=== PATIENT | male | born 1985 | race Caucasian/White ===

== ENCOUNTER 2020-12-30 10:47 | Observation (INO) | payer OTHER ==
[2020-12-30] MEDS ORDERED: SODIUM CHLORIDE 0.9% 1,000 ML IV STA (11:27)
[2020-12-30] MEDS ORDERED: ONDANSETRON 4 MG/2 ML VIAL IVP STA (11:27)
[2020-12-30] MEDS ORDERED: PANTOPRAZOLE 40 MG/10 ML VIAL IVP STA (11:27)
[2020-12-30] MEDS ORDERED: MORPHINE SULFATE 4 MG/ML SYRINGE IV STA (11:27)
--- NOTE | 2020-12-30 12:14 | XR ---
EXAMINATION TYPE: XR chest 2V DATE OF EXAM: 12/30/2020 COMPARISON: NONE HISTORY: Chest pain. TECHNIQUE: Frontal and lateral views of the chest are obtained. FINDINGS: There is no focal air space opacity, pleural effusion, or pneumothorax seen. The cardiac silhouette size is within normal limits. The osseous structures are intact. IMPRESSION: No acute cardiopulmonary process.
--- NOTE | 2020-12-30 12:16 | XR ---
EXAMINATION TYPE: XR KUB DATE OF EXAM: 12/30/2020 12:04 PM CLINICAL HISTORY: Pain and vomiting TECHNIQUE: Two Upright KUB images of the abdomen are obtained. COMPARISON: None. FINDINGS: Air-fluid level in mildly distended stomach. Scattered gas is seen in non-distended small b owel loops. Gas is seen in non-distended colon. There is no visceromegaly, pneumoperitoneum, or abnor mal calcification appreciated. The lung bases are clear and the osseous structures are intact. IMPRESSION: Overall nonobstructive bowel gas pattern.
[2020-12-30 12:54] LABS: Basophils # (A) 0.1 k/uL (0-0.2); Basophils % (A) 1 %; Eosinophils # (A) 3.9 k/uL (0-0.7); Eosinophils % (A) 23 %; HCT 51.4 % (39.0-53.0); HGB 17.1 gm/dL (13.0-17.5); Lymphocytes # (A) 2.9 k/uL (1.0-4.8); Lymphocytes % (A) 17 %; MCH 30.8 pg (25.0-35.0); MCHC 33.3 g/dL (31.0-37.0); MCV 92.5 fL (80.0-100.0); Mean Platelet Volume 7.2; Monocytes # (A) 0.7 k/uL (0-1.0); Monocytes % (A) 4 %; Neutrophils # (A) 9.5 k/uL (1.3-7.7); Neutrophils % (A) 55 %; Platelet Count 393 k/uL (150-450); RBC 5.56 m/uL (4.30-5.90); RDW 14.3 % (11.5-15.5); WBC 17.2 k/uL (3.8-10.6)
--- NOTE | 2020-12-30 13:05 | ED ---
General Adult HPI - General Chief complaint: Nausea/Vomiting/Diarrhea Stated complaint: abd pain, vomiting blood Time Seen by Provider: 12/30/20 11:12 Source: patient, RN notes reviewed Mode of arrival: ambulatory Limitations: no limitations - History of Present Illness Initial comments: Patient is a 35-year-old male that presents to the emergency department complaining of nausea vomiting abdominal pain. Significant other notes that it originally started off as just normal vomiting but is soon as patient Placed into his ER room he vomited in the toilet which had moderate amounts of blood. Patient denied any history of stomach ulcers GI bleeds. Patient didn't appear to be moderately uncomfortable pacing around the room. He notes that he thought it was originally food poisoning and/or something that he ate or drank. Patient denied any significant medical history. Patient denied chest pain shortness of breath headache diarrhea constipation fever fatigue chills. - Related Data Allergies Allergy/AdvReac Type Severity Reaction Status Date / Time citric acid Allergy Unknown Verified 12/30/20 11:10 Childhood orange (food color) Allergy Unknown Verified 12/30/20 11:10 Childhood Review of Systems ROS Statement: Those systems with pertinent positive or pertinent negative responses have been documented in the HPI. ROS Other: All systems not noted in ROS Statement are negative. Past Medical History Past Medical History: No Reported History History of Any Multi-Drug Resistant Organisms: None Reported Additional Past Surgical History / Comment(s): arthroscopy wrist Past Psychological History: No Psychological Hx Reported Smoking Status: Never smoker Past Alcohol Use History: None Reported Past Drug Use History: Marijuana General Exam Limitations: no limitations General appearance: alert, in no apparent distress, obese Head exam: Present: atraumatic, normocephalic, normal inspection Eye exam: Present: normal appearance, PERRL, EOMI. Absent: scleral icterus, conjunctival injection, periorbital swelling ENT exam: Present: normal exam, mucous membranes moist. Absent: normal oropharynx (Erythematous) Neck exam: Present: normal inspection Respiratory exam: Present: normal lung sounds bilaterally. Absent: respiratory distress, wheezes, rales, rhonchi, stridor Cardiovascular Exam: Present: regular rate, normal rhythm, normal heart sounds. Absent: systolic murmur, diastolic murmur, rubs, gallop, clicks GI/Abdominal exam: Present: soft, normal bowel sounds. Absent: distended, tenderness, guarding, rebound, rigid Extremities exam: Present: normal inspection, full ROM, normal capillary refill. Absent: tenderness, pedal edema, joint swelling, calf tenderness Neurological exam: Present: alert, oriented X3 Psychiatric exam: Present: normal affect, normal mood Skin exam: Present: warm, dry, intact, normal color. Absent: rash Course Vital Signs 12/30/20 12/30/20 11:07 14:10 Temperature 98.2 F Pulse Rate 115 H 89 Respiratory 18 18 Rate Blood Pressure 115/77 114/70 O2 Sat by Pulse 96 97 Oximetry EKG Findings - EKG Comments: EKG Findings:: Ventricular rate 95 bpm, W[place] interval 130 ms, QRS duration 88 ms, QTC 397 ms, PRT axes 42/70/-4. Normal sinus rhythm, ST and T wave abnormality consider inferior ischemia, abnormal ECG. Medical Decision Making - Medical Decision Making 35-year-old male complaining of nausea vomiting diarrhea, 1 episode of hematemesis in the ER. Labs, chest x-ray, KUB, EKG, panel monitor, 4 mg morphine, 4 mg Zofran, 40 mg of pantoprazole, occult blood test ordered. Labs: White blood cells 17.2, stool occult positive. Computed tomography scan shows possible Crohn's disease. Case discussed with Dr. Jones, patient will be admitted. Dr. Ochoa was consulted and will except admit with GI on consult. - Lab Data Result diagrams: 12/30/20 12:02 12/30/20 12:02 Lab Results 12/30/20 12/30/20 12/30/20 Range/Units 12:02 12:02 12:02 WBC 17.2 H (3.8-10.6) k/uL RBC 5.56 (4.30-5.90) m/uL Hgb 17.1 (13.0-17.5) gm/dL Hct 51.4 (39.0-53.0) % MCV 92.5 (80.0-100.0) fL MCH 30.8 (25.0-35.0) pg MCHC 33.3 (31.0-37.0) g/dL RDW 14.3 (11.5-15.5) % Plt Count 393 (150-450) k/uL MPV 7.2 Neutrophils % 55 % Lymphocytes % 17 % Monocytes % 4 % Eosinophils % 23 % Basophils % 1 % Neutrophils # 9.5 H (1.3-7.7) k/uL Lymphocytes # 2.9 (1.0-4.8) k/uL Monocytes # 0.7 (0-1.0) k/uL Eosinophils # 3.9 H (0-0.7) k/uL Basophils # 0.1 (0-0.2) k/uL Manual Slide Review Performed Poikilocytosis (manual Present Sodium 137 (137-145) mmol/L Potassium 4.3 (3.5-5.1) mmol/L Chloride 100 (98-107) mmol/L Carbon Dioxide 28 (22-30) mmol/L Anion Gap 9 mmol/L BUN 30 H (9-20) mg/dL Creatinine 1.33 H (0.66-1.25) mg/dL Est GFR (CKD-EPI)AfAm 79 (>60 ml/min/1.73 sqM) Est GFR (CKD-EPI)NonAf 68 (>60 ml/min/1.73 sqM) Glucose 123 H (74-99) mg/dL Plasma Lactic Acid Dwayne 1.9 (0.7-2.0) mmol/L Calcium 9.4 (8.4-10.2) mg/dL Total Bilirubin 0.7 (0.2-1.3) mg/dL AST 20 (17-59) U/L ALT 18 (4-49) U/L Alkaline Phosphatase 67 (38-126) U/L Troponin I (0.000-0.034) ng/mL Total Protein 7.0 (6.3-8.2) g/dL Albumin 4.2 (3.5-5.0) g/dL Amylase 65 (30-110) U/L Lipase 132 (23-300) U/L Stool Occult Blood (Negative) Blood Type Blood Type Recheck Bld Type Recheck Status Antibody Screen Spec Expiration Date 12/30/20 12/30/20 12/30/20 Range/Units 12:02 12:02 12:02 WBC (3.8-10.6) k/uL RBC (4.30-5.90) m/uL Hgb (13.0-17.5) gm/dL Hct (39.0-53.0) % MCV (80.0-100.0) fL MCH (25.0-35.0) pg MCHC (31.0-37.0) g/dL RDW (11.5-15.5) % Plt Count (150-450) k/uL MPV Neutrophils % % Lymphocytes % % Monocytes % % Eosinophils % % Basophils % % Neutrophils # (1.3-7.7) k/uL Lymphocytes # (1.0-4.8) k/uL Monocytes # (0-1.0) k/uL Eosinophils # (0-0.7) k/uL Basophils # (0-0.2) k/uL Manual Slide Review Poikilocytosis (manual Sodium (137-145) mmol/L Potassium (3.5-5.1) mmol/L Chloride (98-107) mmol/L Carbon Dioxide (22-30) mmol/L Anion Gap mmol/L BUN (9-20) mg/dL Creatinine (0.66-1.25) mg/dL Est GFR (CKD-EPI)AfAm (>60 ml/min/1.73 sqM) Est GFR (CKD-EPI)NonAf (>60 ml/min/1.73 sqM) Glucose (74-99) mg/dL Plasma Lactic Acid Dwayne (0.7-2.0) mmol/L Calcium (8.4-10.2) mg/dL Total Bilirubin (0.2-1.3) mg/dL AST (17-59) U/L ALT (4-49) U/L Alkaline Phosphatase (38-126) U/L Troponin I <0.012 (0.000-0.034) ng/mL Total Protein (6.3-8.2) g/dL Albumin (3.5-5.0) g/dL Amylase (30-110) U/L Lipase (23-300) U/L Stool Occult Blood Positive (Negative) Blood Type O Positive Blood Type Recheck No Previous Record Bld Type Recheck Status CABO Indicated Antibody Screen NEGATIVE Spec Expiration Date 01/02/20212301 - EKG Data -: EKG Interpreted by Me EKG shows normal: sinus rhythm Rate: normal EKG Comments: Ventricular rate 95 bpm, WY interval 130 ms, QRS duration 88 ms, QTC 397 ms, PRT axes 42/70/-4. Normal sinus rhythm, ST and T wave abnormality consider inferior ischemia, abnormal ECG. - Radiology Data Radiology results: report reviewed, image reviewed CT angiogram of the abdomen and pelvis: CT findings are consistent with a multifocal enterocolitis as detailed above. Most prominent findings arm prox imal jejunal loops in the upper to mid abdomen. Differential includes infectious and/or inflammatory etiologies. Crohn's disease needs to be strongly considered inpatient at his age. Stomach is distended otherwise unremarkableis dilatation of duodenal sweep. Near the ligament of Treitz there is moderate to severe wall thickening with prominent and dilated jejunum this extent in the right upper to mid abdomen over a continuous moderate length segment. Remainder of small bowel showis dilatatio n. Suboptimal evaluation the right colon due to poor distention. Some mild to moderate wall thickening at this level so resin as there is also some fluid in the right paracolic gutter noted mild wall thickening in the transverse colon is present terminal ileum shows mild to moderate concentric wall thickening without surrounding fat showing. No free air. No well-formed fluid collection or absc ess. KUB: Overall nonobstructive bowel gas pattern Chest x-ray: No acute cardiopulmonary process. Disposition Clinical Impression: Hematemesis, Nausea & vomiting, Abdominal pain Disposition: ADMITTED IP TO THIS HOSP Condition: Stable Is patient prescribed a controlled substance at d/c from ED?: No Referrals: None,Stated [Primary Care Provider] - 1-2 days Time of Disposition: 14:43
[2020-12-30 13:06] LABS: Albumin 4.2 g/dL (3.5-5.0); Calcium 9.4 mg/dL (8.4-10.2); Potassium 4.3 mmol/L (3.5-5.1); Total Bilirubin 0.7 mg/dL (0.2-1.3)
[2020-12-30 13:19] LABS: Poikilocytosis (M) Present
--- NOTE | 2020-12-30 14:10 | CT ---
EXAMINATION TYPE: CT angio abdomen pelvis DATE OF EXAM: 12/30/2020 COMPARISON: None. HISTORY: vomiting blood, GI bleed CT DLP: 3049.6 mGycm, Automated Exposure Control for Dose Reduction was Utilized. CONTRAST: CTA scan of the abdomen and pelvis is performed without oral and without and with IV Contrast, patien t injected with 100 mL of Isovue 370. GI bleed protocol with mid images created on an independent wor kstation and reviewed. FINDINGS: Vascular: Noncontrast images show no suspicious hyperdensity. Post injection images show satisfactory enhancement of the aorta and branch vessels. There is no flash filling collection with delayed incre ase within bowel to suggest active internal GI hemorrhage. LUNG BASES: Slightly elevated right hemidiaphragm. LIVER/GB: Small amount of ascites lying anterior superior aspect. PANCREAS: No significant abnormality is seen. SPLEEN: No significant abnormality is seen. ADRENALS: No significant abnormality is seen. KIDNEYS: Noncontrast images show no renal calculi bilaterally. Postcontrast images show symmetric cor tical medullary uptake and excretion without hydronephrosis seen bilaterally. Incidental exophytic 2. 8 cm thin-walled cyst right kidney upper to midpole level laterally series 601 image 39. BOWEL: Stomach is distended otherwise unremarkable. No suspicious dilatation of duodenal sweep. Near the ligament of Treitz there is moderate to severe wall thickening with prominent and dilated jejunum , this extends into the right upper to midabdomen over a contiguous moderate length segment. Remaind er of small and bowel loops show no suspicious dilatation. Suboptimal evaluation of the right colon d ue to poor distention, some mild to moderate wall thickening at this level is felt present as there i s also some fluid in the right paracolic gutter noted mild wall thickening in the transverse colon is present terminal ileum shows mild to moderate concentric wall thickening without surrounding fat str anding. No free air. No well-formed fluid collection or abscess. PROSTATE/SEMINAL VESICLES: No gross abnormality seen. LYMPH NODES: No greater than 1cm abdominal or pelvic lymph nodes are appreciated. OSSEOUS STRUCTURES: No significant abnormality is seen. OTHER: Fairly moderate amount of free fluid in pelvic cul-de-sac. Large umbilical hernia containing f at and tiny mesenteric vessels. IMPRESSION: CT findings are consistent with a multifocal enterocolitis as detailed above. Most promin ent findings are in proximal jejunal loops in the upper to mid abdomen. Differential includes infecti ous and/or inflammatory etiologies. Crohn's disease needs to BE strongly considered in patient of thi s age.
[2020-12-30] MEDS ORDERED: NALOXONE 0.4 MG/ML 1 ML VIAL IV PRN (14:43)
[2020-12-30] MEDS: SODIUM CHLORIDE 0.9% 1,000 ML IV SCH (15:08)
[2020-12-30 15:20] LABS: Appearance,Urine Clear (Clear); Bilirubin,Urine Negative (Negative); Blood,Urine Negative (Negative); Color,Urine Yellow; Glucose,Urine (UA) Negative (Negative); Ketones,Urine Negative (Negative); Leukocyte Esterase,Urine Negative (Negative); Nitrite,Urine Negative (Negative); Protein,Urine Trace (Negative); Urobilinogen,Urine <2.0 mg/dL (<2.0)
[2020-12-30 15:21] LABS: Specific Gravity,Urine >1.050 (1.001-1.035)
--- NOTE | 2020-12-30 16:24 | ED ---
Medical Decision Making - Medical Decision Making Patient's girlfriend notes that he is taking supplemental hormones not prescribed to himself. Patient girlfriend notes that patient is taking testosterone and a another supplement of which she does not know the name. - Lab Data Result diagrams: 12/30/20 12:02 12/30/20 12:02 Lab Results 12/30/20 12/30/20 12/30/20 Range/Units 12:02 12:02 12:02 WBC 17.2 H (3.8-10.6) k/uL RBC 5.56 (4.30-5.90) m/uL Hgb 17.1 (13.0-17.5) gm/dL Hct 51.4 (39.0-53.0) % MCV 92.5 (80.0-100.0) fL MCH 30.8 (25.0-35.0) pg MCHC 33.3 (31.0-37.0) g/dL RDW 14.3 (11.5-15.5) % Plt Count 393 (150-450) k/uL MPV 7.2 Neutrophils % 55 % Lymphocytes % 17 % Monocytes % 4 % Eosinophils % 23 % Basophils % 1 % Neutrophils # 9.5 H (1.3-7.7) k/uL Lymphocytes # 2.9 (1.0-4.8) k/uL Monocytes # 0.7 (0-1.0) k/uL Eosinophils # 3.9 H (0-0.7) k/uL Basophils # 0.1 (0-0.2) k/uL Manual Slide Review Performed Poikilocytosis (manual Present Sodium 137 (137-145) mmol/L Potassium 4.3 (3.5-5.1) mmol/L Chloride 100 (98-107) mmol/L Carbon Dioxide 28 (22-30) mmol/L Anion Gap 9 mmol/L BUN 30 H (9-20) mg/dL Creatinine 1.33 H (0.66-1.25) mg/dL Est GFR (CKD-EPI)AfAm 79 (>60 ml/min/1.73 sqM) Est GFR (CKD-EPI)NonAf 68 (>60 ml/min/1.73 sqM) Glucose 123 H (74-99) mg/dL Plasma Lactic Acid Dwayne (0.7-2.0) mmol/L Calcium 9.4 (8.4-10.2) mg/dL Total Bilirubin 0.7 (0.2-1.3) mg/dL AST 20 (17-59) U/L ALT 18 (4-49) U/L Alkaline Phosphatase 67 (38-126) U/L Troponin I (0.000-0.034) ng/mL Total Protein 7.0 (6.3-8.2) g/dL Albumin 4.2 (3.5-5.0) g/dL Amylase 65 (30-110) U/L Lipase 132 (23-300) U/L Urine Color Yellow Urine Appearance Clear (Clear) Urine pH 7.0 (5.0-8.0) Ur Specific [place] >1.050 H (1.001-1.035) Urine Protein Trace H (Negative) Urine Glucose (UA) Negative (Negative) Urine Ketones Negative (Negative) Urine Blood Negative (Negative) Urine Nitrite Negative (Negative) Urine Bilirubin Negative (Negative) Urine Urobilinogen <2.0 (<2.0) mg/dL Ur Leukocyte Esterase Negative (Negative) Stool Occult Blood (Negative) Blood Type Blood Type Confirm Blood Type Recheck Bld Type Recheck Status Antibody Screen Spec Expiration Date 12/30/20 12/30/20 12/30/20 Range/Units 12:02 12:02 12:02 WBC (3.8-10.6) k/uL RBC (4.30-5.90) m/uL Hgb (13.0-17.5) gm/dL Hct (39.0-53.0) % MCV (80.0-100.0) fL MCH (25.0-35.0) pg MCHC (31.0-37.0) g/dL RDW (11.5-15.5) % Plt Count (150-450) k/uL MPV Neutrophils % % Lymphocytes % % Monocytes % % Eosinophils % % Basophils % % Neutrophils # (1.3-7.7) k/uL Lymphocytes # (1.0-4.8) k/uL Monocytes # (0-1.0) k/uL Eosinophils # (0-0.7) k/uL Basophils # (0-0.2) k/uL Manual Slide Review Poikilocytosis (manual Sodium (137-145) mmol/L Potassium (3.5-5.1) mmol/L Chloride (98-107) mmol/L Carbon Dioxide (22-30) mmol/L Anion Gap mmol/L BUN (9-20) mg/dL Creatinine (0.66-1.25) mg/dL Est GFR (CKD-EPI)AfAm (>60 ml/min/1.73 sqM) Est GFR (CKD-EPI)NonAf (>60 ml/min/1.73 sqM) Glucose (74-99) mg/dL Plasma Lactic Acid Dwayne 1.9 (0.7-2.0) mmol/L Calcium (8.4-10.2) mg/dL Total Bilirubin (0.2-1.3) mg/dL AST (17-59) U/L ALT (4-49) U/L Alkaline Phosphatase (38-126) U/L Troponin I <0.012 (0.000-0.034) ng/mL Total Protein (6.3-8.2) g/dL Albumin (3.5-5.0) g/dL Amylase (30-110) U/L Lipase (23-300) U/L Urine Color Urine Appearance (Clear) Urine pH (5.0-8.0) Ur Specific [place] (1.001-1.035) Urine Protein (Negative) Urine Glucose (UA) (Negative) Urine Ketones (Negative) Urine Blood (Negative) Urine Nitrite (Negative) Urine Bilirubin (Negative) Urine Urobilinogen (<2.0) mg/dL Ur Leukocyte Esterase (Negative) Stool Occult Blood (Negative) Blood Type O Positive Blood Type Confirm Blood Type Recheck No Previous Record Bld Type Recheck Status CABO Indicated Antibody Screen NEGATIVE Spec Expiration Date 01/02/2021230112/30/20 12/30/20 Range/Units 12:02 12:33 WBC (3.8-10.6) k/uL RBC (4.30-5.90) m/uL Hgb (13.0-17.5) gm/dL Hct (39.0-53.0) % MCV (80.0-100.0) fL MCH (25.0-35.0) pg MCHC (31.0-37.0) g/dL RDW (11.5-15.5) % Plt Count (150-450) k/uL MPV Neutrophils % % Lymphocytes % % Monocytes % % Eosinophils % % Basophils % % Neutrophils # (1.3-7.7) k/uL Lymphocytes # (1.0-4.8) k/uL Monocytes # (0-1.0) k/uL Eosinophils # (0-0.7) k/uL Basophils # (0-0.2) k/uL Manual Slide Review Poikilocytosis (manual Sodium (137-145) mmol/L Potassium (3.5-5.1) mmol/L Chloride (98-107) mmol/L Carbon Dioxide (22-30) mmol/L Anion Gap mmol/L BUN (9-20) mg/dL Creatinine (0.66-1.25) mg/dL Est GFR (CKD-EPI)AfAm (>60 ml/min/1.73 sqM) Est GFR (CKD-EPI)NonAf (>60 ml/min/1.73 sqM) Glucose (74-99) mg/dL Plasma Lactic Acid Dwayne (0.7-2.0) mmol/L Calcium (8.4-10.2) mg/dL Total Bilirubin (0.2-1.3) mg/dL AST (17-59) U/L ALT (4-49) U/L Alkaline Phosphatase (38-126) U/L Troponin I (0.000-0.034) ng/mL Total Protein (6.3-8.2) g/dL Albumin (3.5-5.0) g/dL Amylase (30-110) U/L Lipase (23-300) U/L Urine Color Urine Appearance (Clear) Urine pH (5.0-8.0) Ur Specific [place] (1.001-1.035) Urine Protein (Negative) Urine Glucose (UA) (Negative) Urine Ketones (Negative) Urine Blood (Negative) Urine Nitrite (Negative) Urine Bilirubin (Negative) Urine Urobilinogen (<2.0) mg/dL Ur Leukocyte Esterase (Negative) Stool Occult Blood Positive (Negative) Blood Type Blood Type Confirm O Positive Blood Type Recheck Bld Type Recheck Status Antibody Screen Spec Expiration Date Disposition Clinical Impression: Hematemesis, Nausea & vomiting, Abdominal pain Disposition: ADMITTED IP TO THIS [facility] Condition: Stable
--- NOTE | 2020-12-30 16:50 | P.HPIM ---
History of Present Illness 35-year-old male came in with comments of mainly nausea vomiting after eating changes food yesterday afternoon. As patient was retching patient started throwing up blood. She believed that this may be food poisoning. Patient denie d any fever chills, patient does have leukocytosis patient has elevated serum creatinine. CT of the abdomen showed multiple areas of proximal jejunal colitis multifocal enterocolitis. Concern for Crohn's disease. REVIEW OF SYSTEMS: CONSTITUTIONAL: No fever, no malaise, no fatigue. HEENT: No recent visual problems or hearing problems. Denied any sore throat. CARDIOVASCULAR: No chest pain, orthopnea, PND, no palpitations, no syncope. PULMONARY: No shortness of breath, no cough, no hemoptysis. GASTROINTESTINAL: As mentioned in HPI. NEUROLOGICAL: No headaches, no weakness, no numbness. HEMATOLOGICAL: Denies any bleeding or petechiae. GENITOURINARY: Denies any burning micturition, frequency, or urgency. MUSCULOSKELETAL/RHEUMATOLOGICAL: Denies any joint pain, swelling, or any muscle pain. ENDOCRINE: Denies any polyuria or polydipsia. The rest of the 14-point review of systems is negative. PHYSICAL EXAMINATION: GENERAL: The patient is alert and oriented x3, not in any acute distress. Well developed, well nourished. HEENT: Pupils are round and equally reacting to light. EOMI. No scleral icterus. No conjunctival pallor. Normocephalic, atraumatic. No pharyngeal erythema. No thyromegaly. CARDIOVASCULAR: S1 and S2 present. No murmurs, rubs, or gallops. PULMONARY: Chest is clear to auscultation, no wheezing or crackles. ABDOMEN: Soft, nontender, nondistended, normoactive bowel sounds. No palpable organomegaly. MUSCULOSKELETAL: No joint swelling or deformity. EXTREMITIES: No cyanosis, clubbing, or pedal edema. NEUROLOGICAL: Gross neurological examination did not reveal any focal deficits. SKIN: No rashes. Assessment and plan -Abdominal pain: Gastroenteritis supportive care with IV fluids counseling gastroenterology and CT is read as concerning for Crohn's disease possibly of which is low patient probably has gastroenteritis - upper GI bleed: Secondary to possible [place] tear -Acute renal failure. Baseline creatinine is not available. Patient will be continued on IV fluids probably prerenal azotemia -Leukocytosis reactive probably due to assessment 1 DVT prophylaxis: Early ambulation Past Medical History Past Medical History: No Reported History History of Any Multi-Drug Resistant Organisms: None Reported Additional Past Surgical History / Comment(s): arthroscopy wrist Past Psychological History: No Psychological Hx Reported Smoking Status: Never smoker Past Alcohol Use History: None Reported Past Drug Use History: Marijuana Medications and Allergies Home Medications Medication Instructions Recorded Confirmed Type No Known Home Medications 12/30/20 12/30/20 History Allergies Allergy/AdvReac Type Severity Reaction Status Date / Time citric acid Allergy Unknown Verified 12/30/20 14:47 Childhood orange (food color) Allergy Unknown Verified 12/30/20 14:47 Childhood Physical Exam Vitals: Vital Signs Temp Pulse Resp BP Pulse Ox 12/30/20 14:10 89 18 114/70 97 12/30/20 11:07 98.2 F 115 H 18 115/77 96 Intake and Output 12/30/20 12/30/20 12/30/20 06:59 14:59 22:59 Other: Weight 103.419 kg Results CBC & Chem 7: 12/30/20 12:02 12/30/20 12:02 Labs: Abnormal Lab Results - Last 24 Hours (Table) 12/30/20 12/30/20 12/30/20 Range/Units 12:02 12:02 12:02 WBC 17.2 H (3.8-10.6) k/uL Neutrophils # 9.5 H (1.3-7.7) k/uL Eosinophils # 3.9 H (0-0.7) k/uL BUN 30 H (9-20) mg/dL Creatinine 1.33 H (0.66-1.25) mg/dL Glucose 123 H (74-99) mg/dL Ur Specific [place] >1.050 H (1.001-1.035) Urine Protein Trace H (Negative)
[2020-12-30] MEDS: PANTOPRAZOLE 40 MG/10 ML VIAL IVP SCH (20:48)
[2020-12-30] MEDS: ONDANSETRON 4 MG/2 ML VIAL IVP PRN (20:49)
[2020-12-31] MEDS: SODIUM CHLORIDE 0.9% 1,000 ML IV SCH ×4 (08:39→21:33)
[2020-12-31] MEDS: PANTOPRAZOLE 40 MG/10 ML VIAL IVP SCH ×2 (08:41→21:29)
[2020-12-31] MEDS ORDERED: PANTOPRAZOLE 40 MG/10 ML VIAL IV SCH (09:00)
[2020-12-31 09:46] LABS: HCT 44.8 % (39.0-53.0); HGB 14.5 gm/dL (13.0-17.5); MCH 30.3 pg (25.0-35.0); MCHC 32.3 g/dL (31.0-37.0); MCV 93.7 fL (80.0-100.0); Mean Platelet Volume 7.1; Platelet Count 306 k/uL (150-450); RBC 4.78 m/uL (4.30-5.90); RDW 14.4 % (11.5-15.5); WBC 13.7 k/uL (3.8-10.6)
[2020-12-31 09:59] LABS: INR 1.1 (<1.2); Prothrombin Time 11.6 sec (9.0-12.0)
[2020-12-31] MEDS: MORPHINE SULFATE 4 MG/ML SYRINGE IV PRN ×3 (10:36→19:39)
[2020-12-31] MEDS: ONDANSETRON 4 MG/2 ML VIAL IVP PRN (10:43)
--- NOTE | 2020-12-31 11:57 | P.CONS ---
History of Present Illness - Reason for Consult Consult date: 12/31/20 GI bleed Requesting physician: Estephanie Ochoa - Chief Complaint nausea, vomiting, and abdominal pain - History of Present Illness This is a 35-year-old white male who presented to the emergency department yesterday with complaints of abdominal pain associated with nausea and vomiting, diarrhea which started on Thursday. States he had multiple episodes of vomiting that began Thursday afternoon which he thought he had food poisoning. At that time he denied any coffee-ground emesis or hematemesis, but later that afternoon he started having dark vomit. He states yesterday he had 2 loose bowel movements. When he came to the emergency department he vomited bright red blood. States his bowel movement was black. He has had no IV further vomiting since he had IV antibiotics. He denies any history of peptic ulcer disease or acid reflux. He does take a low dosed daily aspirin, denies any other NSAID use. Takes multiple supplements including creatine, protein powder and testosterone for the last 3 months duration. He states he does have a history of heavy alcohol use in his 20s and drink daily. However he states now he only drinks maybe once a month. He's had no previous history of EGD or colonoscopy.he had a CTA of the abdomen and pelvis with an impression that states CT findings are consistent with a multifocal enterocolitis as detailed above most prominent findings are and proximal jejunal loops in the upper to mid abdomen. Differential includes infectious and/or inflammatory etiologies. Crohn's disease needs to be strongly considered in patient of this age.on admission he had a WBC of 17.2, hemoglobin 17, hematocrit 51, platelet count 393,000 BUN 30, creatinine 1.33,total bilirubin 0.7 AST 20 ALT 18 alk phos 67. Repeat WBC 13.7 hemoglobin 14.5 hematocrit 44.8 platelet count 306,000, INR 1.1. Had a positive stool for occult blood. Review of Systems REVIEW OF SYSTEMS: CARDIOPULMONARY: No chest pain or shortness of breath. Gastrointestinal: Burning sensation in epigastric region, lower abdominal cramping. Nausea and vomiting withb right red blood. Melena. GENITOURINARY: No dysuria or hematuria. MUSCULOSKELETAL: Reports normal range of motion., Joint pain. SKIN: No rashes. No jaundice. ENDOCRINE: No chills, fevers. No excessive weight gain or loss. No polydipsia or polyuria. PSYCHIATRIC: Unremarkable. NEUROLOGY: No change in mental status. Denies dizziness, headache. ENT: Vision unremarkable. CONSTITUTIONAL: No recent weight loss. No fever, chills, night sweats. Past Medical History Past Medical History: No Reported History History of Any Multi-Drug Resistant Organisms: None Reported Additional Past Surgical History / Comment(s): arthroscopy wrist Past Psychological History: No Psychological Hx Reported Smoking Status: Former smoker Past Alcohol Use History: None Reported Additional Past Alcohol Use History / Comment(s): Patient quit smoking 12 years ago Past Drug Use History: Marijuana - Past Family History Mother Family Medical History: Cancer Medications and Allergies Home Medications Medication Instructions Recorded Confirmed Type No Known Home Medications 12/30/20 12/30/20 History Allergies Allergy/AdvReac Type Severity Reaction Status Date / Time orange (food color) Allergy Unknown Verified 12/30/20 14:47 Childhood Physical Exam Vitals: Vital Signs Temp Pulse Pulse Resp BP BP Pulse Ox 12/31/20 07:01 98.6 F 72 18 122/72 97 12/31/20 02:24 99.1 F 100 16 113/71 97 12/30/20 20:00 98.3 F 84 18 110/69 97 12/30/20 18:13 98.1 F 96 20 111/70 96 12/30/20 17:56 97 18 113/70 98 12/30/20 14:10 89 18 114/70 97 12/30/20 11:07 98.2 F 115 H 18 115/77 96 Intake and Output 12/30/20 12/31/20 12/31/20 22:59 06:59 14:59 Other: Voiding Method Toilet # Voids 2 # Bowel Movements 1 Weight 103.419 kg General appearance: The patient is alert, oriented, appears in no acute distress. HET: Head is normocephalic and atraumatic. Conjunctiva pink. Sclera anicteric. Neck: Supple without lymphadenopathy. Trachea midline. Heart: S1 S2. Regular rate and rhythm. Lungs: Clear to auscultation. Abdomen: Soft, right lower quadrant tenderness, nondistended with bowel sounds. No guarding or rigidity. Skin: No rashes. No jaundice. Extremities: Normal skin color and turgor. No pedal edema. Neurological: No focal deficits. Alert and oriented 3.. Results CBC & Chem 7: 12/31/20 08:51 12/30/20 12:02 Labs: Abnormal Lab Results - Last 24 Hours (Table) 12/30/20 12/30/20 12/30/20 Range/Units 12:02 12:02 12:02 WBC 17.2 H (3.8-10.6) k/uL Neutrophils # 9.5 H (1.3-7.7) k/uL Eosinophils # 3.9 H (0-0.7) k/uL BUN 30 H (9-20) mg/dL Creatinine 1.33 H (0.66-1.25) mg/dL Glucose 123 H (74-99) mg/dL Ur Specific [place] >1.050 H (1.001-1.035) Urine Protein Trace H (Negative) Comments: CT angiogram abdomen and pelvis: stomach is distended otherwise unremarkable. No suspicious dilation of duodenal sweep. Near the ligament of Treitz there is moderate to severe wall thickening with prominent and dilated jejunum, this extends into the right upper to mid abdomen over a contingency moderate length segment. Remainder of small and bowel loops show no suspicious dilation. S uboptimal evaluation of the right colon due to poor distention, some mild to moderate wall thickening at this level is felt present as there is also some fluid in the right paracolic gutter noted, mild wall thickening in the transverse colon is present, terminal ileum shows mild to moderate concentric wall thickening without surrounding fat stranding. No free air. No well-formed fluid collection or abscess. Assessment and Plan (1) GI bleed Narrative/Plan: 35-year-old male who presented to the emergency department with complaints of nausea vomiting, abdominal pain and diarrhea since Thursday. Patient states he had multiple episodes on Thursday and presented to the emergency department yesterday has pain increased and he started having vomiting blood. Once he was here at the emergency department he apparently started vomiting significant amount of bright red blood. He also states he had 2 loose bowel movements yesterday, second one which he noted was black. He has no previous history of peptic ulcer disease, GERD, GI bleed, NSAID use other than low-dose daily aspirin. He denies previous EGD or colonoscopy. No history of Crohn's, colitis, or colon cancer. No further diarrhea, nausea or vomiting since he had IV started and given antiemetics. He does have a previous history and his 20s of heavy drinking and states at that time he did have a period where he did vomit blood after retching, however never sought medical treatment. He also has started new supplements including creatine, protein powder and testosterone. He had a CT angiogram of the abdomen and pelvis that showed findings consistent with a multifocal enterocolitis most prominent findings are in the proximal jejunal loops in the upper to mid abdomen. Patient did have evidence of leukocytosis on admission with a stable hemoglobin of 17.1. Current Visit: Yes Status: Acute Code(s): K92.2 - GASTROINTESTINAL HEMORRHAGE, UNSPECIFIED SNOMED Code(s): 65588171 (2) Abdominal pain Current Visit: Yes Status: Acute Code(s): R10.9 - UNSPECIFIED ABDOMINAL PAIN SNOMED Code(s): 19131953 (3) Hematemesis Current Visit: Yes Status: Acute Code(s): K92.0 - HEMATEMESIS SNOMED Code(s): 4975603 (4) Nausea & vomiting Current Visit: Yes Status: Acute Code(s): R11.2 - NAUSEA WITH VOMITING, UNSPECIFIED SNOMED Code(s): 31282815 Plan: 1. Continue symptomatic and supportive care 2. Continue Protonix 40 mg twice a day 3. Clear liquid diet 4. Nothing by mouth after midnight 5. Will proceed with EGD tomorrow 6. PT/INR ordered 7. Avoid NSAIDs 8. Continue antiemetics as needed 9. Repeat CBC Dr. Kris Garcia I agree with the dictator's note, documented as a scribe by Marleen Amador.
[2020-12-31 13:08] LABS: Eosinophils # (M) 3.56 k/uL (0-0.7); Lymphocytes # (M) 2.74 k/uL (1.0-4.8); Monocytes # (M) 0.27 k/uL (0-1.0); Neutrophils # (M) 7.12 k/uL (1.3-7.7); Neutrophils % (M) 52 %; Nucleated Red Blood Cells 0 /100 WBC (0-0); Total Cells Counted 100
--- NOTE | 2020-12-31 15:48 | P.PN ---
Subjective Progress Note Date: 12/31/20 35-year-old male came in with comments of mainly nausea vomiting after eating changes food yesterday afternoon. As patient was retching patient started throwing up blood. She believed that this may be food poisoning. Patient denied any fever chills, patient does have leukocytosis patient has elevated se rum creatinine. CT of the abdomen showed multiple areas of proximal jejunal colitis multifocal enterocolitis. Concern for Crohn's disease. 12/31/20 Patient is evaluated today resting in bed. He states that he is still having bloody bowel movements, blast was very dark in color but did have some red blood. He was evaluated by GI who is doing of upper endoscopy tomorrow. He'll be nothing by mouth after midnight. The labs include a white blood cell count 13.7, hemoglobin of 14.5 which is still normal but however there is A 3 g drop. We will repeat a CBC at 3 PM and in the morning. BUN is 30, creatinine 1.33. We will repeat in the morning. Patient is on IV fluids at 130 mL per hour. Troponin was negative, UA was negative. His occult was positive. Adalat was added to rule out ulcerative colitis as a suspicious diagnosis, that is still pending. Patient is receiving IV Protonix for GI prophylaxis and pain management for morphine. Vital signs include temperature 98.3, heart rate 75, blood pressure 109/65 and 97% room air. ROS Constitutional: Denied any fatigue denied any fever. Cardio vascular: denied any chest pain, palpitations Gastrointestinal denied any nausea vomiting, reports loose stools with blood. Pulmonary: Denied any shortness of breath cough Neurologic denied any new focal deficits All inpatient medications were reviewed and appropriate changes in these m edications as dictated in the interval history and assessment and plan. PHYSICAL EXAMINATION: GENERAL: The patient is alert and oriented x3, not in any acute distress. Well developed, well nourished. HEENT: Pupils are round and equally reacting to light. EOMI. No scleral icterus. No conjunctival pallor. Normocephalic, atraumatic. No pharyngeal erythema. No thyromegaly. CARDIOVASCULAR: S1 and S2 present. No murmurs, rubs, or gallops. PULMONARY: Chest is clear to auscultation, no wheezing or crackles. ABDOMEN: Soft, nontender, nondistended, normoactive bowel sounds. No palpable organomegaly. MUSCULOSKELETAL: No joint swelling or deformity. EXTREMITIES: No cyanosis, clubbing, or pedal edema. NEUROLOGICAL: Gross neurological examination did not reveal any focal deficits. SKIN: No rashes. Assessment and plan -Abdominal pain: Gastroenteritis supportive care with IV fluids counseling gastroenterology and CT is read as concerning for Crohn's disease possibly of which is low patient probably has gastroenteritis - upper GI bleed: Secondary to possible Yue-Mckee tear -Acute renal failure. Baseline creatinine is not available. Patient will be continued on IV fluids probably prerenal azotemia -Leukocytosis reactive probably due to assessment 1, improving DVT prophylaxis: Early ambulation GI prophylaxis: IV Protonix Plan is for upper endoscopy tomorrow GI services. We will monitor hemoglobin closely and continue with IV fluids. Repeat labs in the morning. Objective - Vital Signs Vital signs: Vital Signs Temp 98.3 F 12/31/20 13:40 Pulse 75 12/31/20 13:40 Resp 18 12/31/20 13:40 BP 109/65 12/31/20 13:40 Pulse Ox 97 12/31/20 13:40 Intake & Output 12/30/20 12/31/20 12/31/20 18:59 06:59 18:59 Weight 103.419 kg Other: Voiding Method Toilet # Voids 2 # Bowel Movements 1 1 - Labs CBC & Chem 7: 12/31/20 08:51 12/30/20 12:02 Labs: Abnormal Lab Results - Last 24 Hours (Table) 12/31/20 Range/Units 08:51 WBC 13.7 H (3.8-10.6) k/uL Eosinophils # (Manual) 3.56 H (0-0.7) k/uL Assessment and Plan Time with Patient: Greater than 30
[2020-12-31 16:06] LABS: HCT 38.9 % (39.0-53.0); HGB 13.6 gm/dL (13.0-17.5); MCV 91.4 fL (80.0-100.0); Mean Platelet Volume 6.8; Platelet Count 304 k/uL (150-450); RBC 4.26 m/uL (4.30-5.90); RDW 14.7 % (11.5-15.5); WBC 11.6 k/uL (3.8-10.6)
[2020-12-31 16:53] LABS: Eosinophils # (M) 3.83 k/uL (0-0.7); Lymphocytes # (M) 2.67 k/uL (1.0-4.8); Monocytes # (M) 0.35 k/uL (0-1.0); Neutrophils # (M) 4.76 k/uL (1.3-7.7); Neutrophils % (M) 41 %; Nucleated Red Blood Cells 0 /100 WBC (0-0); Total Cells Counted 100
[2020-12-31] MEDS ORDERED: LACTATED RINGERS 1,000 ML IV SCH (18:30)
[2021-01-01 07:45] LABS: African American GFR (CKD) >90 (>60 ml/min/1.73 sqM); Anion Gap 6 mmol/L; Blood Urea Nitrogen 9 mg/dL (9-20); Calcium 8.4 mg/dL (8.4-10.2); Carbon Dioxide 24 mmol/L (22-30); Chloride 106 mmol/L (98-107); Glucose 96 mg/dL (74-99); Non-African American GFR(CKD) >90 (>60 ml/min/1.73 sqM); Potassium 4.5 mmol/L (3.5-5.1); Sodium 136 mmol/L (137-145)
[2021-01-01] MEDS: SODIUM CHLORIDE 0.9% 1,000 ML IV SCH ×2 (08:00→13:59)
[2021-01-01] MEDS: PANTOPRAZOLE 40 MG/10 ML VIAL IVP SCH (09:12)
[2021-01-01 11:52] LABS: Basophils # (A) 0.07 X 10*3/uL (0.00-0.10); Basophils % (A) 0.7 %; Eosinophils # (A) 4.21 X 10*3/uL (0.04-0.35); Eosinophils % (A) 39.6 %; HCT 38.1 % (39.6-50.0); HGB 12.2 g/dL (13.0-17.0); Lymphocytes # (A) 2.11 X 10*3/uL (0.90-5.00); Lymphocytes % (A) 19.8 %; MCH 29.3 pg (27.0-32.0); MCV 91.6 fL (80.0-97.0); Mean Platelet Volume 9.9 fL (9.5-12.2); Monocytes # (A) 0.56 X 10*3/uL (0.20-1.00); Monocytes % (A) 5.3 %; Neutrophils # (A) 3.67 X 10*3/uL (1.80-7.70); Neutrophils % (A) 34.4 %; Platelet Count 286 X 10*3/uL (140-440); RBC 4.16 X 10*6/uL (4.40-5.60); RDW 15.1 % (11.5-14.5); WBC 10.64 X 10*3/uL (4.50-10.00)
[2021-01-01] MEDS ORDERED: PROPOFOL 10 MG/ML 20 ML VIAL IV ONE (12:35)
[2021-01-01] MEDS ORDERED: LIDOCAINE 1% INJ 10MG/ML (20 ML MDV) ONE (12:35)
[2021-01-01] MEDS ORDERED: SODIUM CHLORIDE 0.9% 500 ML 500 ML IV ONE (12:49)
--- NOTE | 2021-01-01 13:18 | P.PCN ---
Date of Procedure: 01/01/21 Procedure(s) Performed: BRIEF HISTORY: Patient is a 35-year-old, pleasant, male admitted hospital with nausea vomiting and coffee-ground emesis followed by hematemesis.. Hemoglobin remains stable.. He scheduled for an upper endoscopy to evaluate further PROCEDURE PERFORMED: Esophagogastroduodenoscopy with biopsy. PREOPERATIVE DIAGNOSIS: Acute upper GI bleed. IV sedation per anesthesia. PROCEDURE: After informed consent was obtained, the patient was brought into the endoscopy unit. IV sedation was administered by Anesthesia under continuous monitoring. Initially the Olympus GIF-140 video endoscope was inserted into the mouth. Esophagus intubated without any difficulty. It was gradually advanced into the stomach and duodenum and carefully examined. The bulb and the second part of the duodenum appeared normal. The scope at this time was withdrawn to the stomach, adequately insufflated with air, and upon careful examination, mucosa of the antrum had scattered erosions and biopsies were done from this area. The, body, cardia and the fundus appeared normal. The scope was then withdrawn into the esophagus. The GE junction was located at 39 cm from the incisors. Small sliding type hiatal hernia noted. The esophagus appeared normal. There were no erosions or ulcerations seen and the patient tolerated the procedure well. IMPRESSION: 1. Small hiatal hernia. 2. Antral erosive gastritis. RECOMMENDATIONS: The findings of this examination were discussed with the patient as well as his family. It is likely he had a small bowel a Yue- Mckee tear at the costal bleeding which spontaneously resolved. He was advised to follow with the biopsy results. Diet will be advanced as tolerated. He can be discharged home today..
[2021-01-01 14:06] VITALS: BP 105/64; PULSE 83; RESP 16; TEMP 98.2
--- NOTE | 2021-01-02 12:52 | P.DS ---
Providers Date of admission: 12/30/20 14:57 Expected date of discharge: 01/01/21 Attending physician: Estephanie Ochoa MD Consults: 12/30/20 14:43 Consult Physician Urgent Consulting Provider: Vanesa Garcia Consult Reason/Comments: GI bleed Do you want consulting provider notified?: Yes Primary care physician: Stated None Hospital Course: Final diagnosis -Abdominal pain: Gastroenteritis with concern for Crohn's disease although suspicion is extremely low patient probably has gastroenteritis -upper GI bleed: Secondary to possible Yue-Mckee tear -Status post EGD showing antral erosive gastritis and small hiatal hernia biopsy obtained -Acute renal failure. Most likely prerenal azotemia, improved -Leukocytosis reactive probably due to assessment 1, improved -DVT prophylaxis -GI prophylaxis -Full code Discharge disposition Patient is being discharged in a stable condition with guarded prognosis to home. Patient will follow-up with Dr. Pryor upon discharge. Patient will also follow-up with GI Dr. Garcia for biopsy results. Patient will continue on Protonix until follow-up with GI.. Total time taken is greater than 35 minutes. Hospital course 35-year-old male came in with comments of mainly nausea vomiting after eating changes food yesterday afternoon. As patient was retching patient started throwing up blood. She believed that this may be food poisoning. Patient denied any fever chills, patient does have leukocytosis patient has elevated serum creatinine. CT of the abdomen showed multiple areas of proximal jejunal colitis multifocal enterocolitis. Concern for Crohn's disease. 12/31/20 Patient is evaluated today resting in bed. He states that he is still having bloody bowel movements, blast was very dark in color but did have some red blood. He was evaluated by GI who is doing of upper endoscopy tomorrow. He'll be nothing by mouth after midnight. The labs include a white blood cell count 13.7, hemoglobin of 14.5 which is still normal but however there is A 3 g drop. We will repeat a CBC at 3 PM and in the morning. BUN is 30, creatinine 1.33. We will repeat in the morning. Patient is on IV fluids at 130 mL per hour. Tro ponin was negative, UA was negative. His occult was positive. Adalat was added to rule out ulcerative colitis as a suspicious diagnosis, that is still pending. Patient is receiving IV Protonix for GI prophylaxis and pain management for morphine. Vital signs include temperature 98.3, heart rate 75, blood pressure 109/65 and 97% room air. 01/01/2021 Patient is seen and evaluated in follow-up with no further reports of vomiting or bloody stools noted. Patient underwent EGD with GI which shows small hiatal hernia and antral erosive gastritis with possible likelihood of small bowel Yue-Mckee tear at the costal bleeding which spontaneously be resolved. Biopsy was obtained and patient will need follow-up with GI in the outpatient setting in 1-2 weeks to discuss results. Hemoglobin is stable at 12.2. Diet was advanced and patient tolerated diet and requesting to go home. Currently no reports of chest pain, worsening shortness of breath, or palpitations. Patient is afebrile. No reports of nausea or vomiting and patient is tolerating diet. GENERAL: The patient is alert and oriented x3, not in any acute distress. Well developed, well nourished. HEENT: Pupils are round and equally reacting to light. EOMI. No scleral icterus. No conjunctival pallor. Normocephalic, atraumatic. No pharyngeal erythema. No thyromegaly. CARDIOVASCULAR: S1 and S2 present. No murmurs, rubs, or gallops. PULMONARY: Chest is clear to auscultation, no wheezing or crackles. ABDOMEN: Soft, nontender, nondistended, normoactive bowel sounds. No palpable organomegaly. MUSCULOSKELETAL: No joint swelling or deformity. EXTREMITIES: No cyanosis, clubbing, or pedal edema. NEUROLOGICAL: Gross neurological examination did not reveal any focal deficits. SKIN: No rashes. Please refer to medication reconciliation sheet for a list of medications. Patient Condition at Discharge: Stable Plan - Discharge Summary Discharge Rx Participant: No New Discharge Prescriptions: New Pantoprazole [Protonix] 40 mg PO DAILY 30 Days #30 tab Discharge Medication List Pantoprazole [Protonix] 40 mg PO DAILY 30 Days #30 tab 01/01/21 [Rx] Follow up Appointment(s)/Referral(s): Vanesa Garcia MD [STAFF PHYSICIAN] - 1 Week Eladia Pryor MD [REFERRING] - 1-2 Days Patient Instructions/Handouts: Gastrointestinal Bleeding (DC) Activity/Diet/Wound Care/Special Instructions: Activity Limited until follow-up Follow-up with primary care provider and establish upon discharge Follow-up with GI for test results in 1-2 weeks Continue with Protonix until GI follow-up Continue regular diet Discharge Disposition: HOME SELF-CARE
[2021-01-04 14:32] LABS: Saccharomyces cerevisiae IgA 7.9 UNITS (<=20)
== END 2021-01-01 14:29 | disposition home or self-care (01) ==
LOC: EC 10:47 → INTOOBSV 14:57 → 4SSUR 14:57 → UNDODISIN 01-01 14:29
PROVIDERS: ADMIT Internal Medicine; ATTEND Internal Medicine
DX: R10.30 Lower abdominal pain, unspecified (principal); R19.7 Diarrhea, unspecified; K29.51 Unspecified chronic gastritis with bleeding; K44.9 Diaphragmatic hernia without obstruction or gangrene; N17.9 Acute kidney failure, unspecified; D72.829 Elevated white blood cell count, unspecified; K92.0 Hematemesis; R19.5 Other fecal abnormalities; Z20.822 Contact with and (suspected) exposure to COVID-19; Z87.891 Personal history of nicotine dependence; E66.9 Obesity, unspecified; Z68.33 Body mass index [BMI] 33.0-33.9, adult; Z91.018 Allergy to other foods; Z79.82 Long term (current) use of aspirin; Z79.890 Hormone replacement therapy
CPT/HCPCS: 96376; 96361; 96374; 96375; 99285; 36415; 93005; 86900; 86901; 86671 ×2; 88305; 80053; 80048; 82150; 83605; 83690; 84484; 85025 ×3; 85610; 86850; 82272; 81003; 87635; 71046; 74018; 74174; 43239; G0378 ×3; J2270 ×2; J2405 ×2; J2001; J2704; C9113 ×3; Q9967

== ENCOUNTER 2021-01-04 02:52 | Inpatient (IN) | payer OTHER ==
[2021-01-04] MEDS ORDERED: KETOROLAC 15 MG/ML 1 ML VIAL IVP STA (03:46)
[2021-01-04] MEDS ORDERED: SODIUM CHLORIDE 0.9% 1,000 ML IV STA (03:46)
[2021-01-04] MEDS ORDERED: ONDANSETRON 4 MG/2 ML VIAL IVP STA (03:46)
[2021-01-04] MEDS ORDERED: MORPHINE SULFATE 4 MG/ML SYRINGE IV STA (03:46)
[2021-01-04] MEDS ORDERED: DICYCLOMINE 10 MG/ML 2 ML AMP IM STA (03:47)
--- NOTE | 2021-01-04 03:56 | ED ---
Recheck HPI - General Chief Complaint: Abdominal Pain Stated Complaint: Abdominal Pain Time Seen by Provider: 01/04/21 02:53 Source: patient, family, RN notes reviewed, old records reviewed Mode of arrival: ambulatory Limitations: no limitations - History of Present Illness Initial Comments: This is a 35-year-old male to the emergency department. Patient presents today for evaluation regards to abdominal pain severe abdominal pain with nausea vomiting. Patient is recent admission for possible upper GI bleed vomiting blood bright red blood and had a upper GI scope. Patient having persistent abdominal pain and bloating has not had a bowel movement unable to take down solid foods since his upper scope. Patient has no fevers no other complaints actively vomiting currently MD Complaint: other (Significant abdominal pain) -: days(s) Returns Today for: persistent/worsening pain related to initial visit Symptoms Since Prior Visit: worsening pain (Nausea and vomiting) Associated Symptoms: nausea, abdominal pain Treatments Prior to Arrival: Given Pain Meds on - Related Data Previous Rx's Medication Instructions Recorded Pantoprazole [Protonix] 40 mg PO DAILY 30 Days #30 tab 01/01/21 Allergies Allergy/AdvReac Type Severity Reaction Status Date / Time orange (food color) Allergy Unknown Verified 01/04/21 02:58 Childhood Review of Systems ROS Statement: Those systems with pertinent positive or pertinent negative responses have been documented in the HPI. ROS Other: All systems not noted in ROS Statement are negative. Past Medical History Past Medical History: No Reported History History of Any Multi-Drug Resistant Organisms: None Reported Additional Past Surgical History / Comment(s): arthroscopy wrist, endoscopy Past Psychological History: Anxiety, Depression Smoking Status: Former smoker Past Alcohol Use History: None Reported Past Drug Use History: Marijuana - Past Family History Mother Family Medical History: Cancer General Exam Limitations: no limitations General appearance: alert, in no apparent distress, anxious Head exam: Present: atraumatic, normocephalic, normal inspection Eye exam: Present: normal appearance, PERRL, EOMI. Absent: scleral icterus, conjunctival injection, periorbital swelling ENT exam: Present: normal exam, mucous membranes moist Neck exam: Present: normal inspection. Absent: tenderness, meningismus, lymphadenopathy Respiratory exam: Present: normal lung sounds bilaterally. Absent: respiratory distress, wheezes, rales, rhonchi, stridor Cardiovascular Exam: Present: normal rhythm, tachycardia, normal heart sounds. Absent: systolic murmur, diastolic murmur, rubs, gallop, clicks GI/Abdominal exam: Present: soft, distended, tenderness, normal bowel sounds. Absent: guarding, rebound, rigid Extremities exam: Present: normal inspection, full ROM, normal capillary refill. Absent: tenderness, pedal edema, joint swelling, calf tenderness Back exam: Present: normal inspection Neurological exam: Present: alert, oriented X3, CN II-XII intact Psychiatric exam: Present: normal affect, normal mood Skin exam: Present: warm, dry, intact, normal color. Absent: rash Course Vital Signs 01/04/21 01/04/21 02:54 03:58 Temperature 98.5 F Pulse Rate 104 H 72 Respiratory 22 18 Rate Blood Pressure 121/78 109/72 O2 Sat by Pulse 97 99 Oximetry - Reevaluation(s) Reevaluation #1: 01/04/21 03:56 Medical record is reviewed Reevaluation #2: 01/04/21 06:15 Patient symptoms are improved here in the ER Reevaluation #3: 01/04/21 06:16 Patient informed of results and questions are answered Medical Decision Making - Medical Decision Making 35 male DF for evaluation severe abdominal pain nausea vomiting. Unable to eat or drink little weak. Patient does have significant inflammatory colitis with umbilical hernia. Patient will be admitted for antibiotics evaluation of hernia and colitis - Lab Data Result diagrams: 01/04/21 03:48 01/04/21 03:48 Lab Results 01/04/21 01/04/21 Range/Units 03:48 03:48 WBC 21.9 H (3.8-10.6) k/uL RBC 5.22 (4.30-5.90) m/uL Hgb 15.9 (13.0-17.5) gm/dL Hct 47.8 (39.0-53.0) % MCV 91.4 (80.0-100.0) fL MCH 30.5 (25.0-35.0) pg MCHC 33.3 (31.0-37.0) g/dL RDW 14.2 (11.5-15.5) % Plt Count 428 (150-450) k/uL MPV 7.9 Neutrophils % 46 % Lymphocytes % 18 % Monocytes % 4 % Eosinophils % 31 % Basophils % 0 % Neutrophils # 10.1 H (1.3-7.7) k/uL Lymphocytes # 3.9 (1.0-4.8) k/uL Monocytes # 0.8 (0-1.0) k/uL Eosinophils # 6.8 H (0-0.7) k/uL Basophils # 0.1 (0-0.2) k/uL Sodium 135 L (137-145) mmol/L Potassium 4.2 (3.5-5.1) mmol/L Chloride 99 (98-107) mmol/L Carbon Dioxide 23 (22-30) mmol/L Anion Gap 13 mmol/L BUN 12 (9-20) mg/dL Creatinine 1.23 (0.66-1.25) mg/dL Est GFR (CKD-EPI)AfAm 87 (>60 ml/min/1.73 sqM) Est GFR (CKD-EPI)NonAf 75 (>60 ml/min/1.73 sqM) Glucose 106 H (74-99) mg/dL Calcium 9.8 (8.4-10.2) mg/dL Total Bilirubin 0.6 (0.2-1.3) mg/dL AST 23 (17-59) U/L ALT 13 (4-49) U/L Alkaline Phosphatase 78 (38-126) U/L Total Protein 6.4 (6.3-8.2) g/dL Albumin 4.0 (3.5-5.0) g/dL Amylase 47 (30-110) U/L Lipase 96 (23-300) U/L - Radiology Data Radiology results: report reviewed (CT abdomen and pelvis showing severe colitis changes as well as umbilical hernia containing fat), image reviewed Disposition Clinical Impression: Abdominal pain, Nausea & vomiting, Gastroenteritis, Colitis, Inflammatory bowel disease, Leukocytosis, Umbilical hernia, Ascites Disposition: ADMITTED IP TO THIS HOSP Condition: Fair Is patient prescribed a controlled substance at d/c from ED?: No Referrals: None,Stated [Primary Care Provider] - 1-2 days
--- NOTE | 2021-01-04 03:59 | XR ---
EXAMINATION TYPE: XR abdomen acute w cxr DATE OF EXAM: 01/04/2021 COMPARISON: 12/30/2020 HISTORY: Abdominal pain TECHNIQUE: 4 views FINDINGS: Heart and mediastinum are normal. Lungs are clear. Diaphragm is normal. Bowel gas pattern is normal. There is no sign of intestinal obstruction or pneumoperitoneum. Fecal pa ttern is normal. There are no pathologic calcifications over the kidneys. IMPRESSION: Nonacute abdomen. Normal chest. No adverse change.
[2021-01-04 04:21] LABS: Basophils # (A) 0.1 k/uL (0-0.2); Basophils % (A) 0 %; Eosinophils # (A) 6.8 k/uL (0-0.7); Eosinophils % (A) 31 %; HCT 47.8 % (39.0-53.0); HGB 15.9 gm/dL (13.0-17.5); Lymphocytes # (A) 3.9 k/uL (1.0-4.8); Lymphocytes % (A) 18 %; MCH 30.5 pg (25.0-35.0); MCHC 33.3 g/dL (31.0-37.0); MCV 91.4 fL (80.0-100.0); Mean Platelet Volume 7.9; Monocytes # (A) 0.8 k/uL (0-1.0); Monocytes % (A) 4 %; Neutrophils # (A) 10.1 k/uL (1.3-7.7); Neutrophils % (A) 46 %; Platelet Count 428 k/uL (150-450); RBC 5.22 m/uL (4.30-5.90); RDW 14.2 % (11.5-15.5); WBC 21.9 k/uL (3.8-10.6)
[2021-01-04 04:35] LABS: Calcium 9.8 mg/dL (8.4-10.2); Potassium 4.2 mmol/L (3.5-5.1); Total Bilirubin 0.6 mg/dL (0.2-1.3); Total Protein 6.4 g/dL (6.3-8.2)
--- NOTE | 2021-01-04 05:33 | CT ---
EXAMINATION TYPE: CT abdomen pelvis wo con DATE OF EXAM: 01/04/2021 COMPARISON: None HISTORY: upper abdominal pain. recent GI bleed. feels constipated CT DLP: 916 mGycm Automated exposure control for dose reduction was used. Images obtained from the diaphragm to the floor the pelvis without contrast. Lung bases are clear of consolidation. There is no pleural effusion. Heart size is normal. There is n o pericardial effusion. Liver spleen stomach pancreas appear intact. Bile ducts are not dilated. Gallbladder appears normal. There is mild ascites. There is free fluid around the liver. There is no adrenal mass. Kidneys have n ormal size. There is no hydronephrosis. There is 2.5 cm cortical cyst lateral right kidney. Ureters a re not dilated. There is no retroperitoneal adenopathy. Bladder distends smoothly. There is moderate free fluid in the pelvis. There are dilated small bowel loops in the mid abdomen with significant wall thickening. This involve s multiple loops of proximal jejunum. Small bowel measures up to 5.5 cm in diameter. Wall thickness i s up to 1 cm. There is no evidence of free air. Large bowel pattern is normal. The appendix appears normal. Termina l ileum appears normal. Lumbar vertebra have normal alignment. There is no compression fracture. The bony pelvis is intact. H ip joints are intact. There is 3 cm umbilical hernia that contains fat. IMPRESSION: Multiple dilated proximal small bowel loops with significant wall thickening has progressed compared to old exam. There is abdominal ascites that is increased compared to old exam. Transition point of small bowel no t seen. This could relate to severe gastroenteritis or inflammatory bowel disease. The significant wa ll thickening suggests that this is not a mechanical bowel obstruction.
[2021-01-04] MEDS ORDERED: NALOXONE 0.4 MG/ML 1 ML VIAL IV PRN (06:11)
[2021-01-04] MEDS ORDERED: AMPICILLIN-SULBACTAM 3 GM in SODIUM CHLORIDE 0.9% 100 ML IVPB STA (06:14)
[2021-01-04] MEDS: SODIUM CHLORIDE 0.9% 1,000 ML IV SCH ×2 (08:30→14:25)
[2021-01-04] MEDS: PANTOPRAZOLE 40 MG/10 ML VIAL IV SCH (08:30)
--- NOTE | 2021-01-04 10:04 | P.GSCN ---
History of Present Illness Consult date: 01/04/21 Reason for Consult: Enteritis History of present illness: 35-year-old male returns to the hospital around 2 AM with complaints of upper abdominal pain and intractable vomiting. Patient was hospitalized last weekend. He was having hematemesis with some vague upper abdominal discomfort at that time. Patient had upper endoscopy showing gastritis and a Yue-Mckee tear. He was discharged home. Initially he thought he was doing well however patient's nausea vomiting and upper abdominal discomfort recurred. Patient says he usually is only having pain when he is actively vomiting. No fevers. [place] constipated and took stool softeners. No diarrhea. Patient had a CAT scan last admission and again a repeat CAT scan this admission. The first CAT scan showed some multifocal enterocolitis. Repeat CAT scan performed earlier this morning shows increased inflammation of the proximal jejunum involving the fourth portion of the duodenum. There is significant wall thickening and some free fluid within the abdomen. White blood cell count 21. No family history of inflammatory bowel disease. C-reactive protein normal. Patient's does his discomfort has improved since admission. History of previous heavy alcohol use. Patient does take multiple supplements as part of his exercise regimen. Review of Systems The patient denies any acute changes in vision or hearing, no dysphagia or odynophagia, no chest pain or shortness of breath, no dysuria or hematuria, no headache, no runny nose, no rectal bleeding or melena, no unexplained weight loss Past Medical History Past Medical History: No Reported History History of Any Multi-Drug Resistant Organisms: None Reported Additional Past Surgical History / Comment(s): arthroscopy wrist, endoscopy Past Psychological History: Anxiety, Depression Smoking Status: Former smoker Past Alcohol Use History: None Reported Past Drug Use History: Marijuana - Past Family History Mother Family Medical History: Cancer Medications and Allergies Home Medications Medication Instructions Recorded Confirmed Type Pantoprazole [Protonix] 40 mg PO HS 01/04/21 01/04/21 History Simethicone [Gas-X] 125 mg PO DAILY PRN 01/04/21 01/04/21 History bisacodyL [Dulcolax] 5 mg PO DAILY PRN 01/04/21 01/04/21 History Allergies Allergy/AdvReac Type Severity Reaction Status Date / Time orange (food color) Allergy Unknown Verified 01/04/21 06:23 Childhood Surgical - Exam Vital Signs Temp Pulse Resp BP Pulse Ox 98.5 F 104 H 22 121/78 97 01/04/21 02:54 01/04/21 02:54 01/04/21 02:54 01/04/21 02:54 01/04/21 02:54 Physical exam: General: Well-developed, well-nourished HEENT: Normocephalic, sclerae nonicteric Abdomen: Mild distention, mild upper abdominal tenderness, no rebound or guarding Extremities: No edema Neuro: Alert and oriented Results - Labs 01/04/21 03:48 01/04/21 03:48 Abnormal Lab Results - Last 24 Hours (Table) 01/04/21 01/04/21 Range/Units 03:48 03:48 WBC 21.9 H (3.8-10.6) k/uL Neutrophils # 10.1 H (1.3-7.7) k/uL Eosinophils # 6.8 H (0-0.7) k/uL Sodium 135 L (137-145) mmol/L Glucose 106 H (74-99) mg/dL Diabetes panel 01/04/21 Range/Units 03:48 Sodium 135 L (137-145) mmol/L Potassium 4.2 (3.5-5.1) mmol/L Chloride 99 (98-107) mmol/L Carbon Dioxide 23 (22-30) mmol/L BUN 12 (9-20) mg/dL Creatinine 1.23 (0.66-1.25) mg/dL Glucose 106 H (74-99) mg/dL Calcium 9.8 (8.4-10.2) mg/dL AST 23 (17-59) U/L ALT 13 (4-49) U/L Alkaline Phosphatase 78 (38-126) U/L Total Protein 6.4 (6.3-8.2) g/dL Albumin 4.0 (3.5-5.0) g/dL Calcium panel 01/04/21 Range/Units 03:48 Calcium 9.8 (8.4-10.2) mg/dL Albumin 4.0 (3.5-5.0) g/dL Pituitary panel 01/04/21 Range/Units 03:48 Sodium 135 L (137-145) mmol/L Potassium 4.2 (3.5-5.1) mmol/L Chloride 99 (98-107) mmol/L Carbon Dioxide 23 (22-30) mmol/L BUN 12 (9-20) mg/dL Creatinine 1.23 (0.66-1.25) mg/dL Glucose 106 H (74-99) mg/dL Calcium 9.8 (8.4-10.2) mg/dL Adrenal panel 01/04/21 Range/Units 03:48 Sodium 135 L (137-145) mmol/L Potassium 4.2 (3.5-5.1) mmol/L Chloride 99 (98-107) mmol/L Carbon Dioxide 23 (22-30) mmol/L BUN 12 (9-20) mg/dL Creatinine 1.23 (0.66-1.25) mg/dL Glucose 106 H (74-99) mg/dL Calcium 9.8 (8.4-10.2) mg/dL Total Bilirubin 0.6 (0.2-1.3) mg/dL AST 23 (17-59) U/L ALT 13 (4-49) U/L Alkaline Phosphatase 78 (38-126) U/L Total Protein 6.4 (6.3-8.2) g/dL Albumin 4.0 (3.5-5.0) g/dL Assessment and Plan (1) Enteritis Narrative/Plan: 35-year-old male with impressive enteritis on CAT scan. Patient's abdominal exam thankfully relatively benign. Discussed case with GI. Continue broad- spectrum antibiotics for suspected infectious enteritis. Hold steroids for now unless symptoms do not improve. We'll follow closely with you. Keep nothing by mouth. Current Visit: Yes Status: Acute Code(s): K52.9 - NONINFECTIVE GASTROENTERITIS AND COLITIS, UNSPECIFIED SNOMED Code(s): 40952430
[2021-01-04] MEDS: AMPICILLIN-SULBACTAM 3 GM in SODIUM CHLORIDE 0.9% 100 ML IVPB SCH ×2 (14:25→22:01)
--- NOTE | 2021-01-04 14:32 | P.CONS ---
History of Present Illness - Reason for Consult Consult date: 01/04/21 Colitis Requesting physician: Chava Mtz - Chief Complaint Abdominal pain and bloating - History of Present Illness This a 35-year-old male who was recently admitted earlier this week and discharged after presenting with abdominal pain, nausea, vomiting, and hem atemesis. He underwent an EGD on 01/01/2021 with findings of a small hiatal hernia and antral erosive gastritis. Biopsy results to come back as mild gastritis. He states for the past day or 2 has not been able to eat he is feeling bloated and distended with abdominal pain. Denies any further nausea or vomiting. He is having small amounts of bowel movements although he's been taking laxatives. He has no previous history of Crohn's or ulcerative colitis. He had a CT of the abdomen and pelvis that shows multiple dilated proximal small bowel loops with significant wall thickening has progressed compared to old exam. There is abdominal ascites that is increased compared to old exam. Edward sition point of small bowel not seen. This could relate to severe gastroenteritis or inflammatory bowel disease. The significant wall thickening suggests that this is not a mechanical bowel obstruction. He denies any fevers or chills. Denies any blood in his stool. He had leukocytosis with a WBC of 21.9, hemoglobin 15.9 platelet count 428,000. His been afebrile. He has had no previous colonoscopy. He currently states he still has abdominal distention and bloating. He does not have sharp pain per se, no nausea or vomiting currently. Review of Systems REVIEW OF SYSTEMS: CARDIOPULMONARY: No chest pain or shortness of breath. Gastrointestinal: Abdominal distention and bloating. No nausea or vomiting. No hematemesis, coffee-ground emesis. No rectal bleeding, or melena. Decreased appetite. GENITOURINARY: No dysuria or hematuria. MUSCULOSKELETAL: Reports normal range of motion., Joint pain. SKIN: No rashes. No jaundice. ENDOCRINE: No chills, fevers. No excessive weight gain or loss. No polydipsia or polyuria. PSYCHIATRIC: Unremarkable. NEUROLOGY: No change in mental status. Denies dizziness, headache. ENT: Vision unremarkable. CONSTITUTIONAL: No recent weight loss. No fever, chills, night sweats. Past Medical History Past Medical History: No Reported History History of Any Multi-Drug Resistant Organisms: None Reported Additional Past Surgical History / Comment(s): arthroscopy wrist, endoscopy Past Psychological History: Anxiety, Depression Smoking Status: Former smoker Past Alcohol Use History: None Reported Past Drug Use History: Marijuana - Past Family History Mother Family Medical History: Cancer Medications and Allergies Home Medications Medication Instructions Recorded Confirmed Type Pantoprazole [Protonix] 40 mg PO HS 01/04/21 01/04/21 History Simethicone [Gas-X] 125 mg PO DAILY PRN 01/04/21 01/04/21 History bisacodyL [Dulcolax] 5 mg PO DAILY PRN 01/04/21 01/04/21 History Allergies Allergy/AdvReac Type Severity Reaction Status Date / Time orange (food color) Allergy Unknown Verified 01/04/21 06:23 Childhood Physical Exam Vitals: Vital Signs Temp Pulse Resp BP Pulse Ox 01/04/21 08:00 97.9 F 72 18 127/75 99 01/04/21 03:58 72 18 109/72 99 01/04/21 02:54 98.5 F 104 H 22 121/78 97 Intake and Output 01/03/21 01/04/21 01/04/21 22:59 06:59 14:59 Other: Weight 103.419 kg General appearance: The patient is alert, oriented, appears in no acute distress. HET: Head is normocephalic and atraumatic. Conjunctiva pink. Sclera anicteric. Neck: Supple without lymphadenopathy. Trachea midline. Heart: S1 S2. Regular rate and rhythm. Lungs: Clear to auscultation. Abdomen: Soft, diffuse tenderness, mild distention with bowel sounds. No guarding or rigidity. Skin: No rashes. No jaundice. Extremities: Normal skin color and turgor. No pedal edema. Neurological: No focal deficits. Alert and oriented 3.. Results CBC & Chem 7: 01/04/21 03:48 01/04/21 03:48 Labs: Abnormal Lab Results - Last 24 Hours (Table) 01/04/21 01/04/21 Range/Units 03:48 03:48 WBC 21.9 H (3.8-10.6) k/uL Neutrophils # 10.1 H (1.3-7.7) k/uL Eosinophils # 6.8 H (0-0.7) k/uL Sodium 135 L (137-145) mmol/L Glucose 106 H (74-99) mg/dL Comments: CT of the abdomen and pelvis that shows multiple dilated proximal small bowel loops with significant wall thickening has progressed compared to old exam. There is abdominal ascites that is increased compared to old exam. Transition point of small bowel not seen. This could relate to severe gastroenteritis or inflammatory bowel disease. The significant wall thickening suggests that this is not a mechanical bowel obstruction. Assessment and Plan (1) Abdominal pain Narrative/Plan: 35-year-old male who was recently admitted and discharged earlier this week with complaints of abdominal pain associated with nausea and vomiting. That time he had hematemesis and underwent an EGD that showed small hiatal hernia and antral erosive gastritis. Patient was sent home on Protonix. Has no previous history of ulcerative colitis or Crohn's disease. At that time his CT of his abdomen did show mild colitis possible gastroenteritis. Repeat CT of the abdomen shows multiple dilated proximal small bowel loops with significant wall thickening has progressed compared to old exam. There is abdominal ascites that is increased compared to old exam. Transition point of small bowel not seen. This could relate to severe gastroenteritis or inflammatory bowel disease. The significant wall thickening suggests that this is not a mechanical bowel obstruction. He's been started on Unasyn. Inflammatory markers normal. Continue IV antibiotics . Likely we are dealing with an infectious etiology. Gen. surgery on consult. Current Visit: Yes Status: Acute Code(s): R10.9 - UNSPECIFIED ABDOMINAL PAIN SNOMED Code(s): 57713892 (2) Enteritis Current Visit: Yes Status: Acute Code(s): K52.9 - NONINFECTIVE GASTROENTERITIS AND COLITIS, UNSPECIFIED SNOMED Code(s): 86185866 (3) Ascites Current Visit: Yes Status: Acute Code(s): R18.8 - OTHER ASCITES SNOMED Code(s): 115179755 Plan: 1. Continue IV antibiotics 2. Nothing by mouth except for ice chips 3. Protonix 40 mg twice a day 4. Sed rate and CRP ordered 5. Appreciate recommendations from general surgery Thank you for allowing us to participate in the care of the patient, the GI service will sign off, gastroenterology will not be available at the hospital this weekend. If further evaluation by gastroenterology is required the patient will need transfer as per the primary team's discretion. Dr. Kris Garcia I agree with the dictator's note, documented as a scribe by Marleen Amador.
[2021-01-04] MEDS ORDERED: KETOROLAC 15 MG/ML 1 ML VIAL IVP PRN (15:39)
[2021-01-04] MEDS ORDERED: SIMETHICONE 80 MG CHEWABLE PO PRN (15:39)
--- NOTE | 2021-01-04 16:00 | HP ---
HISTORY AND PHYSICAL DATE OF SERVICE: 01/04/2021. CHIEF COMPLAINT: Abdominal pain. HISTORY OF PRESENT ILLNESS: This 35-year-old gentleman with a past medical history of anxiety, depression, history of nicotine dependence, history of arthroplasty, being followed by no primary doctor in the outpatient setting, was recently admitted to [facility] for abdominal pain and hematemesis. Possibility of Yue-Mckee tear and Crohn's disease was also considered. The patient was treated symptomatically. Patient went home. Subsequently the patient had some diffuse abdominal pain and some nausea and vomiting. The patient came to [facility] and was admitted for further evaluation and treatment. The patient is unable to keep any solid food down since yesterday. There is no history of any fever, rigor or chills at this time. The labs are WBC 21.9, sodium 135, glucose 106. COVID-19 is negative. PAST MEDICAL HISTORY: History of anxiety, depression, history of nicotine dependence, history of THC. MEDICATIONS: Home medications are Dulcolax, Gas-X, Protonix. ALLERGIES: ORANGE. FAMILY HISTORY: History of cancer in the family. SOCIAL HISTORY: History of smoking 12 years ago. History of THC. REVIEW OF SYSTEMS: ENT: No diminished hearing. No diminished vision. CARDIOVASCULAR SYSTEM: No angina, palpitations. RESPIRATORY SYSTEM: No cough, hemoptysis. GI: As mentioned earlier. : No dysuria. NERVOUS SYSTEM: No numbness, weakness. ALLERGY/IMMUNOLOGY: No asthma or hay fever. MUSCULOSKELETAL: As mentioned earlier. HEMATOLOGY/ONCOLOGY: No history of anemia. ENDOCRINE: No history of diabetes or hypothyroidism. CONSTITUTIONAL: As mentioned earlier. DERMATOLOGY: Negative. RHEUMATOLOGY: Negative. PSYCHIATRY: As mentioned earlier. PHYSICAL EXAMINATION: Patient alert, oriented x3. Pulse is 77, blood pressure 112/61, respiration 18, temperature normal, pulse ox 99% on room air. HEENT: Conjunctivae normal. Oral mucosa dry. NECK: No jugular venous distention. CARDIOVASCULAR: S1, S2 muffled. RESPIRATION: Breath sounds diminished at the bases. A few scattered rhonchi and crackles. ABDOMEN: Soft. Mild diffuse discomfort. No guarding. No rigidity. No mass palpable. LEGS: No edema. No swelling. NERVOUS SYSTEM: Higher functions as mentioned earlier. Moves all 4 limbs. No focal motor or sensory deficit. LYMPHATICS: No lymph node palpable in neck, axillae or groin. SKIN: No ulcer, rash, bleeding. JOINTS: No active deforming arthropathy. LABS: WBC 21.9, hemoglobin 15.9, sodium 135. CT scan noted. ASSESSMENT: 1. Abdominal pain; possible acute enteritis. 2. Increased white count, possibly reactive. 3. Eosinophilia. 4. Hyponatremia. 5. History of anxiety. 6. History of depression. 7. History of THC. 8. Remote history of nicotine dependence. 9. Obesity with body mass index of 34.7. 10.FULL CODE. RECOMMENDATIONS AND DISCUSSION: In this 35-year-old gentleman who presented with multiple complex medical issues, we will monitor the patient closely, continue the current medications, continue with symptomatic treatment. Empiric antibiotics have been initiated. I would also recommend gastroenterology and surgical evaluations. Guarded prognosis because of multiple complex medical issues. Further recommendations to follow. Obtain the cultures as well. I also recommend that the patient follow up with a primary physician in the outpatient setting. MMODL / IJN: [id number] /
[2021-01-04] MEDS: metroNIDAZOLE-NS PMX 500 MG in SALINE 1 100ML.BAG IVPB SCH (16:40)
[2021-01-04] MEDS: HEPARIN SODIUM,PORCINE/PF 5,000 UNIT/0.5 ML SYRINGE SQ SCH (21:56)
[2021-01-04] MEDS: ALPRAZolam 0.25 MG TAB PO PRN (22:08)
[2021-01-05] MEDS: SODIUM CHLORIDE 0.9% 1,000 ML IV SCH ×4 (00:05→20:10)
[2021-01-05] MEDS: metroNIDAZOLE-NS PMX 500 MG in SALINE 1 100ML.BAG IVPB SCH ×3 (00:27→17:08)
[2021-01-05] MEDS: MORPHINE SULFATE 4 MG/ML SYRINGE IV PRN ×4 (03:55→19:55)
[2021-01-05] MEDS: AMPICILLIN-SULBACTAM 3 GM in SODIUM CHLORIDE 0.9% 100 ML IVPB SCH ×3 (05:32→23:09)
[2021-01-05] MEDS: PANTOPRAZOLE 40 MG/10 ML VIAL IV SCH (08:02)
[2021-01-05] MEDS: HEPARIN SODIUM,PORCINE/PF 5,000 UNIT/0.5 ML SYRINGE SQ SCH ×2 (08:04→23:11)
[2021-01-05 08:23] LABS: Phosphorus 3.3 mg/dL (2.5-4.5)
[2021-01-05 08:32] LABS: Basophils # (A) 0.1 k/uL (0-0.2); Basophils % (A) 1 %; Eosinophils # (A) 7.3 k/uL (0-0.7); Eosinophils % (A) 43 %; HCT 38.6 % (39.0-53.0); HGB 13.3 gm/dL (13.0-17.5); Lymphocytes # (A) 2.4 k/uL (1.0-4.8); Lymphocytes % (A) 14 %; MCH 31.4 pg (25.0-35.0); MCHC 34.4 g/dL (31.0-37.0); MCV 91.4 fL (80.0-100.0); Mean Platelet Volume 6.9; Monocytes # (A) 0.6 k/uL (0-1.0); Monocytes % (A) 4 %; Neutrophils # (A) 6.4 k/uL (1.3-7.7); Neutrophils % (A) 38 %; Platelet Count 366 k/uL (150-450); RBC 4.23 m/uL (4.30-5.90); WBC 16.9 k/uL (3.8-10.6)
--- NOTE | 2021-01-05 11:15 | P.PN ---
Subjective Progress Note Date: 01/05/21 Principal diagnosis: Enteritis Patient is doing better today. Says his pain has improved. He was sleeping comfortably overnight. White blood cell count improved at 16.9. He is afebrile. Objective - Vital Signs Vital signs: Vital Signs Temp 98.5 F 01/05/21 04:40 Pulse 76 01/05/21 04:40 Resp 18 01/05/21 04:40 BP 107/65 01/05/21 04:40 Pulse Ox 94 L 01/05/21 04:40 Intake & Output 01/04/21 01/05/21 01/05/21 18:59 06:59 18:59 Intake Total 0 Balance 0 Weight 103.419 kg Intake: Oral 0 Other: Voiding Method Toilet # Voids 1 - Exam Abdomen: Soft, nondistended, mild epigastric tenderness, no rebound or guarding - Labs CBC & Chem 7: 01/05/21 07:34 01/04/21 03:48 Labs: Abnormal Lab Results - Last 24 Hours (Table) 01/04/21 01/05/21 Range/Units 16:32 07:34 WBC 16.9 H (3.8-10.6) k/uL RBC 4.23 L (4.30-5.90) m/uL Hct 38.6 L (39.0-53.0) % Eosinophils # 7.3 H (0-0.7) k/uL D-Dimer 12.99 H (<0.60) mg/L FEU Assessment and Plan (1) Enteritis Narrative/Plan: Continue antibiotics for enteritis. Keep on clear liquids for now. Ambulate. Current Visit: Yes Status: Acute Code(s): K52.9 - NONINFECTIVE GASTROENTERITIS AND COLITIS, UNSPECIFIED SNOMED Code(s): 29658553
--- NOTE | 2021-01-05 14:25 | P.PN ---
Subjective Progress Note Date: 01/05/21 HISTORY OF PRESENT ILLNESS 35-year-old male patient with past medical history of anxiety, depression, his tory of nicotine dependence, history of arthroplasty, being followed by primary doctor in the outpatient setting with recently being admitted to [facility] for abdominal pain and hematemesis. Had a possible Yue-Mckee tear and Crohn's disease was also considered, patient was treated symptomatically, went home [place]cl[place] patient had some diffuse abdominal pain and some nausea and vomiting the patient can for urine output was admitted for further evaluation. Patient is unable to keep any solid food down since yesterday, there is no history of any fever or chills at this time. Labs on admission showed WBC 21.9, sodium 135, glucose 106, Covid is negative. 01/05/2021 Patient is seen on follow-up he is resting in bed reports his abdominal pain is improving but is still there. He has been taking only ice chips by mouth has been started on clear liquid diet, he is not having any diarrhea or vomiting at this time. Family is at bedside. No fever REVIEW OF SYSTEMS: CARDIOVASCULAR: Negative RESPIRATORY: Negative GI: Nausea, abdominal pain : No dysuria or retention. NERVOUS SYSTEM: No numbness or weakness. ALLERGY/IMMUNOLOGY: No asthma or hay fever. MUSCULOSKELETAL: As mentioned earlier. HEENT: Head is atraumatic, normocephalic. Pupils equal, round. Sclerae is anicteric. NECK: Supple. No JVD. No lymphadenopathy. No thyromegaly. LUNGS: Clear to auscultation. No wheezes or rhonchi. HEART: Regular rate and rhythm. No murmur. ABDOMEN: Soft. Mild diffuse tenderness Bowel sounds are present. No masses. EXTREMITIES: No pedal edema. NEUROLOGICAL: Patient is awake, alert and oriented x3. Cranial nerves 2 through 12 are grossly intact. Abdominal pain possibly secondary to acute enteritis Leukocytosis, possibly reactive Eisonophilia Hyponatremia History of anxiety History of depression History of THC use, sinuses nicotine dependence Obesity Patient will be continued on IV hydration, he is on clear liquid diet recommended him to advance diet slowly and as he tolerates. Continue symptomatically with antiemetics and his Lasix as needed. Patient is also continued on empiric antimicrobials. Continue to monitor renal function and electrolytes, monitor CBC. Continue DVT and GI prophylaxis. Prognosis guarded, we'll continue to follow. Objective - Vital Signs Vital signs: Vital Signs Temp 97.5 F L 01/05/21 12:17 Pulse 105 H 01/05/21 12:17 Resp 18 01/05/21 12:17 BP 106/55 01/05/21 12:17 Pulse Ox 97 01/05/21 12:17 Intake & Output 01/04/21 01/05/21 01/05/21 18:59 06:59 18:59 Intake Total 0 Balance 0 Weight 103.419 kg Intake: Oral 0 Other: Voiding Method Toilet # Voids 1 - Labs CBC & Chem 7: 01/05/21 07:34 01/04/21 03:48 Labs: Abnormal Lab Results - Last 24 Hours (Table) 01/04/21 01/05/21 Range/Units 16:32 07:34 WBC 16.9 H (3.8-10.6) k/uL RBC 4.23 L (4.30-5.90) m/uL Hct 38.6 L (39.0-53.0) % Eosinophils # 7.3 H (0-0.7) k/uL D-Dimer 12.99 H (<0.60) mg/L FEU
[2021-01-06] MEDS: metroNIDAZOLE-NS PMX 500 MG in SALINE 1 100ML.BAG IVPB SCH ×4 (00:21→23:23)
[2021-01-06] MEDS: ALPRAZolam 0.25 MG TAB PO PRN (04:24)
[2021-01-06] MEDS: SODIUM CHLORIDE 0.9% 1,000 ML IV SCH ×3 (04:25→23:25)
[2021-01-06] MEDS: AMPICILLIN-SULBACTAM 3 GM in SODIUM CHLORIDE 0.9% 100 ML IVPB SCH ×3 (05:09→21:08)
[2021-01-06 08:14] LABS: HCT 38.4 % (39.0-53.0); HGB 12.9 gm/dL (13.0-17.5); MCH 31.5 pg (25.0-35.0); MCHC 33.6 g/dL (31.0-37.0); MCV 93.8 fL (80.0-100.0); Mean Platelet Volume 6.7; Platelet Count 350 k/uL (150-450); RBC 4.09 m/uL (4.30-5.90); RDW 14.6 % (11.5-15.5); WBC 17.3 k/uL (3.8-10.6)
[2021-01-06 08:28] LABS: African American GFR (CKD) >90 (>60 ml/min/1.73 sqM); Anion Gap 5 mmol/L; Blood Urea Nitrogen 5 mg/dL (9-20); Calcium 8.5 mg/dL (8.4-10.2); Carbon Dioxide 27 mmol/L (22-30); Chloride 105 mmol/L (98-107); Glucose 87 mg/dL (74-99); Non-African American GFR(CKD) >90 (>60 ml/min/1.73 sqM); Potassium 4.1 mmol/L (3.5-5.1); Sodium 137 mmol/L (137-145)
[2021-01-06 09:24] LABS: Eosinophils # (M) 7.79 k/uL (0-0.7); Lymphocytes # (M) 2.42 k/uL (1.0-4.8); Monocytes # (M) 0.52 k/uL (0-1.0); Neutrophils # (M) 6.92 k/uL (1.3-7.7); Neutrophils % (M) 40 %; Nucleated Red Blood Cells 0 /100 WBC (0-0); Total Cells Counted 200
[2021-01-06] MEDS: HEPARIN SODIUM,PORCINE/PF 5,000 UNIT/0.5 ML SYRINGE SQ SCH ×2 (09:31→21:06)
[2021-01-06] MEDS: PANTOPRAZOLE 40 MG/10 ML VIAL IV SCH (09:32)
--- NOTE | 2021-01-06 10:07 | P.PN ---
Subjective Progress Note Date: 01/06/21 Principal diagnosis: Enteritis Patient sleeping comfortably. Patient says he has no significant pain today or yesterday. Tolerating clear liquids. He wants more to eat. No bowel movement. He is afebrile. White blood cell count increased today to 17 from 16. Objective - Vital Signs Vital signs: Vital Signs Temp 98.6 F 01/06/21 04:35 Pulse 73 01/06/21 04:35 Resp 18 01/06/21 04:35 BP 100/62 01/06/21 04:35 Pulse Ox 97 01/06/21 04:35 Intake & Output 01/05/21 01/06/21 01/06/21 18:59 06:59 18:59 Intake Total 1860 100 Balance 1860 100 Intake: Intake, IV Titration 1860 Amount Ampicillin-Sulbactam 3 gm 100 In Sodium Chloride 0.9% 100 ml @ 200 mls/hr IVPB Q8H [facility] Rx#:[id number] Sodium Chloride 0.9% 1, 1560 000 ml @ 130 mls/hr IV . Q7H42M [facility] Rx#:[id number] metroNIDAZOLE-NS PMX 500 200 mg In Saline 1 100ml.bag @ 100 mls/hr IVPB Q8HR [facility] Rx#:[id number] Oral 100 Other: Voiding Method Toilet # Voids 1 - Exam Abdomen: Soft, minimal upper abdominal tenderness, no rebound or guarding - Labs CBC & Chem 7: 01/06/21 08:00 01/06/21 08:00 Labs: Abnormal Lab Results - Last 24 Hours (Table) 01/06/21 01/06/21 Range/Units 08:00 08:00 WBC 17.3 H (3.8-10.6) k/uL RBC 4.09 L (4.30-5.90) m/uL Hgb 12.9 L (13.0-17.5) gm/dL Hct 38.4 L (39.0-53.0) % Eosinophils # (Manual) 7.79 H (0-0.7) k/uL BUN 5 L (9-20) mg/dL Assessment and Plan (1) Enteritis Narrative/Plan: Patient with leukocytosis persisting. Continue gradually increasing diet. Start full liquids at this time. Continue broad-spectrum antibiotics. Repeat labs tomorrow. Current Visit: Yes Status: Acute Code(s): K52.9 - NONINFECTIVE GASTROENTERITIS AND COLITIS, UNSPECIFIED SNOMED Code(s): 49309799
[2021-01-06] MEDS ORDERED: TEMAZEPAM 15 MG CAP PO PRN (10:51)
[2021-01-06] MEDS: HYDROcodone/APAP 7.5-325MG 1 EACH TAB PO PRN ×2 (13:43→21:11)
[2021-01-07] MEDS: HYDROcodone/APAP 7.5-325MG 1 EACH TAB PO PRN ×2 (05:50→21:08)
[2021-01-07] MEDS: AMPICILLIN-SULBACTAM 3 GM in SODIUM CHLORIDE 0.9% 100 ML IVPB SCH ×2 (05:51→14:40)
[2021-01-07 06:23] LABS: Basophils # (A) 0.1 k/uL (0-0.2); Basophils % (A) 0 %; Eosinophils # (A) 9.7 k/uL (0-0.7); Eosinophils % (A) 50 %; HCT 42.2 % (39.0-53.0); HGB 13.7 gm/dL (13.0-17.5); Lymphocytes # (A) 2.2 k/uL (1.0-4.8); Lymphocytes % (A) 11 %; MCH 30.5 pg (25.0-35.0); MCHC 32.5 g/dL (31.0-37.0); MCV 93.9 fL (80.0-100.0); Mean Platelet Volume 6.8; Monocytes # (A) 0.6 k/uL (0-1.0); Monocytes % (A) 3 %; Neutrophils # (A) 6.7 k/uL (1.3-7.7); Neutrophils % (A) 34 %; Platelet Count 355 k/uL (150-450); RDW 14.7 % (11.5-15.5); WBC 19.4 k/uL (3.8-10.6)
[2021-01-07] MEDS: HEPARIN SODIUM,PORCINE/PF 5,000 UNIT/0.5 ML SYRINGE SQ SCH ×2 (08:28→20:47)
[2021-01-07] MEDS: PANTOPRAZOLE 40 MG/10 ML VIAL IV SCH (08:28)
[2021-01-07] MEDS: metroNIDAZOLE-NS PMX 500 MG in SALINE 1 100ML.BAG IVPB SCH ×3 (08:29→23:41)
[2021-01-07] MEDS: SODIUM CHLORIDE 0.9% 1,000 ML IV SCH ×3 (08:30→17:59)
[2021-01-07 10:17] LABS: African American GFR (CKD) 91.8 (60.0-200.0); Anion Gap 12.9 mmol/L (4.00-12.00); BUN/Creat Ratio 3.85 Ratio (12.00-20.00); Blood Urea Nitrogen 4.5 mg/dL (9.0-27.0); Calcium 8.4 mg/dL (8.7-10.3); Carbon Dioxide 23.3 mmol/L (21.6-31.8); Non-African American GFR(CKD) 79.2 (60.0-200.0)
--- NOTE | 2021-01-07 11:34 | P.PN ---
<Lucrecia Irving - Last Filed: 01/07/21 11:27> Subjective Progress Note Date: 01/07/21 CHIEF COMPLAINT: Enteritis HISTORY OF PRESENT ILLNESS: Patient complaining of more bloating today. He reports that it feels similar to his admission. He has some lower abdominal discomfort. He did have a small bowel movement and flatus. Denies any nausea or vomiting. He is currently on a full liquid diet. He feels milk products may have irritated his stomach more. He does not really like the options that are on the full liquid or clear liquid diet. He is afebrile. WBC did go up from 17.3-19.4 PHYSICAL EXAM: VITAL SIGNS: Reviewed. GENERAL: Well-developed in no acute distress. HEENT: No sclera icterus. Extraocular movements grossly intact. Moist buccal mucosa. Head is atraumatic, normocephalic. ABDOMEN: Soft. Mildly distended. Lower abdominal tenderness NEUROLOGIC: Alert and oriented. Cranial nerves II through XII grossly intact. ASSESSMENT: 1. Enteritis 2. Leukocytosis PLAN: -Continue antibiotics -Continue full liquid diet until evaluated by surgeon -Encouraged patient to ambulate -Follow up on CBC in a.m. Physician Dike Supervisor note has been reviewed by physician. Signing provider agrees with the documented findings, assessment, and plan of care. Objective - Vital Signs Vital signs: Vital Signs Temp 98.5 F 01/07/21 04:59 Pulse 79 01/07/21 04:59 Resp 16 01/07/21 04:59 BP 101/59 01/07/21 04:59 Pulse Ox 94 L 01/07/21 04:59 Intake & Output 01/06/21 01/07/21 01/07/21 18:59 06:59 18:59 Intake Total 1040 Balance 1040 Intake: Intake, IV Titration 1040 Amount Ampicillin-Sulbactam 3 gm 100 In Sodium Chloride 0.9% 100 ml @ 200 mls/hr IVPB Q8H [facility] Rx#:[id number] Sodium Chloride 0.9% 1, 840 000 ml @ 130 mls/hr IV . Q7H42M [facility] Rx#:[id number] metroNIDAZOLE-NS PMX 500 100 mg In Saline 1 100ml.bag @ 100 mls/hr IVPB Q8HR [facility] Rx#:[id number] Other: Voiding Method Toilet # Voids 3 - Labs CBC & Chem 7: 01/07/21 05:59 01/07/21 05:59 Labs: Abnormal Lab Results - Last 24 Hours (Table) 01/07/21 01/07/21 Range/Units 05:59 05:59 WBC 19.4 H (3.8-10.6) k/uL Anion Gap 12.90 H (4.00-12.00) mmol/L BUN 4.5 L (9.0-27.0) mg/dL BUN/Creatinine Ratio 3.85 L (12.00-20.00) Ratio Calcium 8.4 L (8.7-10.3) mg/dL <Julianne Carcamoony - Last Filed: 01/07/21 15:18> Subjective As above. Patient had increased pain yesterday evening that reminded him of the pain he presented to the hospital with. White blood cell count is increased further. He has had a bowel movement. Case was discussed with GI. Will order a upper GI small bowel series at this time. Continue antibiotics. Will follow. Objective - Vital Signs Vital signs: Vital Signs Temp 98.6 F 01/07/21 12:39 Pulse 74 01/07/21 12:39 Resp 16 01/07/21 12:39 BP 142/81 01/07/21 12:39 Pulse Ox 96 01/07/21 12:39 Intake & Output 01/06/21 01/07/21 01/07/21 18:59 06:59 18:59 Intake Total 1040 Balance 1040 Intake: Intake, IV Titration 1040 Amount Ampicillin-Sulbactam 3 gm 100 In Sodium Chloride 0.9% 100 ml @ 200 mls/hr IVPB Q8H [facility] Rx#:[id number] Sodium Chloride 0.9% 1, 840 000 ml @ 130 mls/hr IV . Q7H42M [facility] Rx#:[id number] metroNIDAZOLE-NS PMX 500 100 mg In Saline 1 100ml.bag @ 100 mls/hr IVPB Q8HR [facility] Rx#:[id number] Other: Voiding Method Toilet # Voids 3 - Labs CBC & Chem 7: 01/07/21 05:59 01/07/21 05:59 Labs: Abnormal Lab Results - Last 24 Hours (Table) 01/07/21 01/07/21 Range/Units 05:59 05:59 WBC 19.4 H (3.8-10.6) k/uL Eosinophils # 9.7 H (0-0.7) k/uL Anion Gap 12.90 H (4.00-12.00) mmol/L BUN 4.5 L (9.0-27.0) mg/dL BUN/Creatinine Ratio 3.85 L (12.00-20.00) Ratio Calcium 8.4 L (8.7-10.3) mg/dL Assessment and Plan (1) Enteritis Current Visit: Yes Status: Acute Code(s): K52.9 - NONINFECTIVE GASTR OENTERITIS AND COLITIS, UNSPECIFIED SNOMED Code(s): 18969353
--- NOTE | 2021-01-07 13:39 | P.PN ---
Subjective Progress Note Date: 01/07/21 Principal diagnosis: Abdominal pain Should seen and examined lying in bed. He is admitted with abdominal pain and hematemesis early last week and underwent an EGD with out any evidence of GI bleed. Likely was a Yue-Mckee tear from multiple episodes of vomiting. He was readmitted last week with abdominal pain, CAT scan showed possible colitis. Inflammatory markers were negative. Patient continues to have abdominal pain with bloating and distention. He is denying any vomiting, has some nausea. States yesterday he had a bowel movement which was formed and again today. He was on a clear liquid diet tolerating well and advanced to a full liquid diet however states that since having the milk products he is feeling more bloated and distended again. He's been afebrile. No blood in the stool. WBC 19.4 hemoglobin 13.7 Objective - Vital Signs Vital signs: Vital Signs Temp 98.5 F 01/07/21 04:59 Pulse 79 01/07/21 04:59 Resp 16 01/07/21 04:59 BP 101/59 01/07/21 04:59 Pulse Ox 94 L 01/07/21 04:59 Intake & Output 01/06/21 01/07/21 01/07/21 18:59 06:59 18:59 Intake Total 1040 Balance 1040 Intake: Intake, IV Titration 1040 Amount Ampicillin-Sulbactam 3 gm 100 In Sodium Chloride 0.9% 100 ml @ 200 mls/hr IVPB Q8H [facility] Rx#:[id number] Sodium Chloride 0.9% 1, 840 000 ml @ 130 mls/hr IV . Q7H42M [facility] Rx#:[id number] metroNIDAZOLE-NS PMX 500 100 mg In Saline 1 100ml.bag @ 100 mls/hr IVPB Q8HR [facility] Rx#:[id number] Other: Voiding Method Toilet # Voids 3 - Exam General appearance: The patient is alert, oriented, appears in no acute distress. HET: Head is normocephalic and atraumatic. Conjunctiva pink. Sclera anicteric. Neck: Supple without lymphadenopathy. Abdomen: Soft, diffuse tenderness greatest along the upper quadrants, nondistended with bowel sounds. No guarding or rigidity. Extremities: Normal skin color and turgor. No pedal edema Skin: No rashes, no jaundice Neurological: No focal deficits. Alert and oriented 3. - Labs CBC & Chem 7: 01/07/21 05:59 01/07/21 05:59 Labs: Abnormal Lab Results - Last 24 Hours (Table) 01/06/21 01/07/21 Range/Units 08:00 05:59 WBC 19.4 H (3.8-10.6) k/uL Eosinophils # (Manual) 7.79 H (0-0.7) k/uL Assessment and Plan (1) Abdominal pain Narrative/Plan: 35-year-old male who was recently admitted and discharged earlier this week with complaints of abdominal pain associated with nausea and vomiting. That time he had hematemesis and underwent an EGD that showed small hiatal hernia and antral erosive gastritis. Patient was sent home on Protonix. Has no previous history of ulcerative colitis or Crohn's disease. At that time his CT of his abdomen did show mild colitis possible gastroenteritis. Repeat CT of the abdomen shows multiple dilated proximal small bowel loops with significant wall thickening has progressed compared to old exam. There is abdominal ascites that is increased compared to old exam. Transition point of small bowel not seen. This could relate to severe gastroenteritis or inflammatory bowel disease. The significant wall thickening suggests that this is not a mechanical bowel obstruction. He's been started on Unasyn. Inflammatory markers normal. Continue IV antibiotics. Likely we are dealing with an infectious etiology. Gen. surgery on consult. No real improvement in symptoms. Will order small bowel series. Current Visit: Yes Status: Acute Code(s): R10.9 - UNSPECIFIED ABDOMINAL PAIN SNOMED Code(s): 17854797 (2) Enteritis Current Visit: Yes Status: Acute Code(s): K52.9 - NONINFECTIVE GASTROENTERITIS AND COLITIS, UNSPECIFIED SNOMED Code(s): 94051116 (3) Ascites Current Visit: Yes Status: Acute Code(s): R18.8 - OTHER ASCITES SNOMED Code(s): 740135332 Plan: 1. Continue IV antibiotics 2. Nothing by mouth after midnight 3. Protonix 40 mg twice a day 4. Small bowel series ordered 5. Gen. surgery on consult Thank you for this consultation, we will continue to follow. Dr. Kris Gacria I agree with the dictator's note, documented as a scribe by Marleen Amador.
[2021-01-07] MEDS: PIPERACILLIN-TAZOBACTAM 3.375 GM in SODIUM CHLORIDE 0.9% 100 ML IVPB SCH ×2 (16:24→23:40)
--- NOTE | 2021-01-07 19:16 | PN ---
PROGRESS NOTE DATE OF SERVICE: 01/07/2021 This 35-year-old gentleman who was admitted with abdominal pain and possible acute enteritis is being followed by multiple consultants, including Gastroenterology. No chest pain. No palpitations. No fever. PHYSICAL EXAMINATION: Alert and oriented x3. Pulse 74, blood pressure 142/81, respirations 16, temperature normal, pulse ox 96% on room air. HEENT: Conjunctivae normal. NECK: No jugular venous distention. CARDIOVASCULAR: S1, S2 muffled. RESPIRATION: Breath sounds diminished at the bases. A few scattered rhonchi. ABDOMEN: Soft. Mild diffuse tenderness. LEGS: No edema. No swelling. NERVOUS SYSTEM: No focal deficit. LABS: WBC 19.4. ASSESSMENT: 1. 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 2. Leukocytosis, possibly reactive. 3. Eosinophilia. 4. Hyponatremia. 5. History of anxiety. 6. History of depression. 7. History of THC abuse. 8. nicotine dependence. 9. Obesity. RECOMMENDATIONS AND DISCUSSION: I recommend to continue current medications, continue with symptomatic treatment. Otherwise at this time we will closely monitor. Gastroenterology has been consulted. Guarded prognosis. Further recommendations to follow. MMODL / IJN: [id number] / RONAK
[2021-01-07 20:55] LABS: Appearance,Urine Clear (Clear); Bilirubin,Urine Negative (Negative); Blood,Urine Negative (Negative); Color,Urine Yellow; Glucose,Urine (UA) Negative (Negative); Ketones,Urine 2+ (Negative); Leukocyte Esterase,Urine Trace (Negative); Mucus,Urine Rare /hpf; Nitrite,Urine Negative (Negative); Protein,Urine Negative (Negative); RBC,Urine <1 /hpf (0-5); Specific Gravity,Urine 1.019 (1.001-1.035); Urobilinogen,Urine <2.0 mg/dL (<2.0); WBC,Urine 2 /hpf (0-5)
[2021-01-07 21:09] LABS: Amphetamine Screen,Urine Not Detected (NotDetected); Barbiturate Screen,Urine Not Detected (NotDetected); Benzodiazepines Screen,Urine Not Detected (NotDetected); Cocaine Screen,Urine Not Detected (NotDetected); Methadone Screen, Urine Not Detected (NotDetected); Opiate Screen,Urine Detected (NotDetected); Oxycodone Screen, Urine Not Detected (NotDetected); Phencyclidine Screen,Urine Not Detected (NotDetected); Tricyclic Antidepressant,Urine Not Detected (NotDetected); Urn Cannabinoid Scrn Not Detected (NotDetected)
[2021-01-08] MEDS: ONDANSETRON 4 MG/2 ML VIAL IVP PRN ×2 (01:06→08:29)
[2021-01-08] MEDS: SODIUM CHLORIDE 0.9% 1,000 ML IV SCH ×3 (01:08→19:05)
[2021-01-08] MEDS: HYDROcodone/APAP 7.5-325MG 1 EACH TAB PO PRN ×3 (06:19→20:03)
[2021-01-08 06:22] LABS: Basophils # (A) 0.1 k/uL (0-0.2); Basophils % (A) 0 %; Eosinophils # (A) 11.6 k/uL (0-0.7); Eosinophils % (A) 52 %; HCT 42.7 % (39.0-53.0); Lymphocytes # (A) 2.3 k/uL (1.0-4.8); Lymphocytes % (A) 10 %; MCH 30.6 pg (25.0-35.0); MCHC 32.7 g/dL (31.0-37.0); MCV 93.7 fL (80.0-100.0); Mean Platelet Volume 6.9; Monocytes # (A) 0.6 k/uL (0-1.0); Monocytes % (A) 3 %; Neutrophils # (A) 7.7 k/uL (1.3-7.7); Neutrophils % (A) 34 %; Platelet Count 360 k/uL (150-450); RBC 4.56 m/uL (4.30-5.90); RDW 14.7 % (11.5-15.5); WBC 22.4 k/uL (3.8-10.6)
[2021-01-08] MEDS: metroNIDAZOLE-NS PMX 500 MG in SALINE 1 100ML.BAG IVPB SCH ×3 (07:24→22:50)
[2021-01-08] MEDS: HEPARIN SODIUM,PORCINE/PF 5,000 UNIT/0.5 ML SYRINGE SQ SCH ×2 (07:24→19:24)
[2021-01-08] MEDS: PANTOPRAZOLE 40 MG/10 ML VIAL IV SCH (07:24)
[2021-01-08] MEDS: PIPERACILLIN-TAZOBACTAM 3.375 GM in SODIUM CHLORIDE 0.9% 100 ML IVPB SCH ×3 (08:21→22:50)
--- NOTE | 2021-01-08 11:57 | P.PN ---
<LainebenjaminLucrecia - Last Filed: 01/08/21 11:54> Subjective Progress Note Date: 01/08/21 CHIEF COMPLAINT: Enteritis HISTORY OF PRESENT ILLNESS: Patient feels the same as he did on admission. He complains of bloating and lower abdominal pain. He complains of feeling full quickly even with liquids. He does report having had bowel movement and flatus. He did have vomiting yesterday. He is scheduled for EGD today with GI service. Afebrile. WBC is up at 22.4. Patient also being evaluated by hematology due to elevated eosinophil level PHYSICAL EXAM: VITAL SIGNS: Reviewed. GENERAL: Well-developed in no acute distress. HEENT: No sclera icterus. Extraocular movements grossly intact. Moist buccal mucosa. Head is atraumatic, normocephalic. ABDOMEN: Soft. Mildly distended. Nontender NEUROLOGIC: Alert and oriented. Cranial nerves II through XII grossly intact. ASSESSMENT: 1. Enteritis 2. Leukocytosis PLAN: -Patient scheduled for EGD today with GI service -Continue antibiotics -Encouraged patient to ambulate -Follow up on CBC in a.m. Physician Internet Webmaster note has been reviewed by physician. Signing provider agrees with the documented findings, assessment, and plan of care. Objective - Vital Signs Vital signs: Vital Signs Temp 98.4 F 01/08/21 05:00 Pulse 89 01/08/21 05:00 Resp 16 01/08/21 09:00 BP 124/62 01/08/21 05:00 Pulse Ox 97 01/08/21 05:00 Intake & Output 01/07/21 01/08/21 01/08/21 18:59 06:59 18:59 Intake Total 1370 1940 Output Total 1 Balance 1370 1939 Intake: Intake, IV Titration 1370 1700 Amount Ampicillin-Sulbactam 3 gm 200 In Sodium Chloride 0.9% 100 ml @ 200 mls/hr IVPB Q8H [facility] Rx#:[id number] Piperacillin-Tazobactam 3 100 .375 gm In Sodium Chloride 0.9% 100 ml @ 25 mls/hr IVPB Q8HR [facility] Rx# :[id number] Sodium Chloride 0.9% 1, 1170 1500 000 ml @ 130 mls/hr IV . Q7H42M [facility] Rx#:[id number] metroNIDAZOLE-NS PMX 500 100 mg In Saline 1 100ml.bag @ 100 mls/hr IVPB Q8HR [facility] Rx#:[id number] Oral 240 Output: Emesis 1 Other: Voiding Method Toilet Toilet # Voids 2 # Bowel Movements 1 - Labs CBC & Chem 7: 01/08/21 06:03 01/07/21 05:59 Labs: Abnormal Lab Results - Last 24 Hours (Table) 01/07/21 01/07/21 01/08/21 Range/Units 05:59 20:32 06:03 WBC 22.4 H (3.8-10.6) k/uL Eosinophils # 9.7 H 11.6 H (0-0.7) k/uL Urine Ketones 2+ H (Negative) Ur Leukocyte Esterase Trace H (Negative) Urine Mucus Rare H (None) /hpf Urine Opiates Screen Detected H (NotDetected) Microbiology - Last 24 Hours (Table) 01/07/21 20:45 Stool Culture - Preliminary Stool <Jaziel Carcamo - Last Filed: 01/08/21 14:31> Subjective As above. 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 Spoke with GI. Patient will be started on oral steroids. Will follow. Objective - Vital Signs Vital signs: Vital Signs Temp 98.2 F 01/08/21 13:05 Pulse 88 01/08/21 13:05 Resp 16 01/08/21 13:05 BP 111/61 01/08/21 13:05 Pulse Ox 98 01/08/21 13:05 Intake & Output 01/07/21 01/08/21 01/08/21 18:59 06:59 18:59 Intake Total 1370 1940 300 Output Total 1 Balance 1370 1939 300 Intake: IV 300 Intake, IV Titration 1370 1700 Amount Ampicillin-Sulbactam 3 gm 200 In Sodium Chloride 0.9% 100 ml @ 200 mls/hr IVPB Q8H [facility] Rx#:[id number] Piperacillin-Tazobactam 3 100 .375 gm In Sodium Chloride 0.9% 100 ml @ 25 mls/hr IVPB Q8HR [facility] Rx# :[id number] Sodium Chloride 0.9% 1, 1170 1500 000 ml @ 130 mls/hr IV . Q7H42M [facility] Rx#:[id number] metroNIDAZOLE-NS PMX 500 100 mg In Saline 1 100ml.bag @ 100 mls/hr IVPB Q8HR [facility] Rx#:[id number] Oral 240 Output: Emesis 1 Other: Voiding Method Toilet Toilet # Voids 2 # Bowel Movements 1 - Labs CBC & Chem 7: 01/08/21 06:03 01/07/21 05:59 Labs: Abnormal Lab Results - Last 24 Hours (Table) 01/07/21 01/08/21 Range/Units 20:32 06:03 WBC 22.4 H (3.8-10.6) k/uL Eosinophils # 11.6 H (0-0.7) k/uL Urine Ketones 2+ H (Negative) Ur Leukocyte Esterase Trace H (Negative) Urine Mucus Rare H (None) /hpf Urine Opiates Screen Detected H (NotDetected) Microbiology - Last 24 Hours (Table) 01/07/21 20:45 Stool Culture - Preliminary Stool Assessment and Plan (1) Enteritis Current Visit: Yes Status: Acute Code(s): K52.9 - NONINFECTIVE GASTROENTERITIS AND COLITIS, UNSPECIFIED SNOMED Code(s): 99756240
[2021-01-08] MEDS ORDERED: LIDOCAINE 1% INJ 10MG/ML (20 ML MDV) ONE (12:18)
[2021-01-08] MEDS ORDERED: PROPOFOL 10 MG/ML 20 ML VIAL IV ONE (12:18)
[2021-01-08] MEDS ORDERED: IV FLUID CONTINUATION 1,000 ML IV ONE (12:19)
--- NOTE | 2021-01-08 12:36 | P.PN ---
Subjective Progress Note Date: 01/08/21 Principal diagnosis: Abdominal pain Should seen and examined lying in bed. He is admitted with abdominal pain and hematemesis early last week and underwent an EGD with out any evidence of GI bleed. Likely was a Yue-Mckee tear from multiple episodes of vomiting. He was readmitted last week with abdominal pain, CAT scan showed possible colitis. Inflammatory markers were negative. Patient continues to have abdominal pain with bloating and distention. He had nausea and vomiting through the night along with increased abdominal pain and bloating. Patient is very frustrated that his symptoms are not improving. Did have an increase in his WBC to 22.4, eosinophils 11.6, hemoglobin 14 platelet count 360,000. Objective - Vital Signs Vital signs: Vital Signs Temp 98.4 F 01/08/21 05:00 Pulse 89 01/08/21 05:00 Resp 16 01/08/21 09:00 BP 124/62 01/08/21 05:00 Pulse Ox 97 01/08/21 05:00 Intake & Output 01/07/21 01/08/21 01/08/21 18:59 06:59 18:59 Intake Total 1370 1940 Output Total 1 Balance 1370 1939 Intake: Intake, IV Titration 1370 1700 Amount Ampicillin-Sulbactam 3 gm 200 In Sodium Chloride 0.9% 100 ml @ 200 mls/hr IVPB Q8H [facility] Rx#:[id number] Piperacillin-Tazobactam 3 100 .375 gm In Sodium Chloride 0.9% 100 ml @ 25 mls/hr IVPB Q8HR [facility] Rx# :[id number] Sodium Chloride 0.9% 1, 1170 1500 000 ml @ 130 mls/hr IV . Q7H42M [facility] Rx#:[id number] metroNIDAZOLE-NS PMX 500 100 mg In Saline 1 100ml.bag @ 100 mls/hr IVPB Q8HR [facility] Rx#:[id number] Oral 240 Output: Emesis 1 Other: Voiding Method Toilet Toilet # Voids 2 # Bowel Movements 1 - Exam General appearance: The patient is alert, oriented, appears in no acute distress. HET: Head is normocephalic and atraumatic. Conjunctiva pink. Sclera anicteric. Neck: Supple without lymphadenopathy. Abdomen: Soft, diffuse tenderness greatest along the upper quadrants, nondistended with bowel sounds. No guarding or rigidity. Extremities: Normal skin color and turgor. No pedal edema Skin: No rashes, no jaundice Neurological: No focal deficits. Alert and oriented 3. - Labs CBC & Chem 7: 01/08/21 06:03 01/07/21 05:59 Labs: Abnormal Lab Results - Last 24 Hours (Table) 01/07/21 01/07/21 01/08/21 Range/Units 05:59 20:32 06:03 WBC 22.4 H (3.8-10.6) k/uL Eosinophils # 9.7 H 11.6 H (0-0.7) k/uL Urine Ketones 2+ H (Negative) Ur Leukocyte Esterase Trace H (Negative) Urine Mucus Rare H (None) /hpf Urine Opiates Screen Detected H (NotDetected) Microbiology - Last 24 Hours (Table) 01/07/21 20:45 Stool Culture - Preliminary Stool Assessment and Plan (1) Abdominal pain Narrative/Plan: 35-year-old male who was recently admitted and discharged earlier this week with complaints of abdominal pain associated with nausea and vomiting. That time he had hematemesis and underwent an EGD that showed small hiatal hernia and antral erosive gastritis. Patient was sent home on Protonix. Has no previous history of ulcerative colitis or Crohn's disease. At that time his CT of his abdomen did show mild colitis possible gastroenteritis. Repeat CT of the abdomen shows multiple dilated proximal small bowel loops with significant wall thickening has progressed compared to old exam. There is abdominal ascites that is increased compared to old exam. Transition point of small bowel not seen. This could relate to severe gastroenteritis or inflammatory bowel disease. The significant wall thickening suggests that this is not a mechanical bowel obstruction. He's been started on Unasyn. Inflammatory markers normal. Continue IV antibiotics. Likely we are dealing with an infectious etiology. Gen. surgery on consult. Leukocytosis persists including increased abdominal pain and nausea and vomiting. 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 Will proceed with EGD with push enteroscopy. Procedure discussed with patient in detail and he is agreeable to proceed. Current Visit: Yes Status: Acute Code(s): R10.9 - UNSPECIFIED ABDOMINAL PAIN SNOMED Code(s): 05441831 (2) Enteritis Current Visit: Yes Status: Acute Code(s): K52.9 - NONINFECTIVE GASTRO ENTERITIS AND COLITIS, UNSPECIFIED SNOMED Code(s): 48126238 (3) Ascites Current Visit: Yes Status: Acute Code(s): R18.8 - OTHER ASCITES SNOMED Code(s): 842258392 Plan: 1. Continue IV antibiotics 2. Nothing by mouth 3. Protonix 40 mg twice a day 4. Antiemetics as needed 5. Will proceed with EGD and push enteroscopy with biopsies 6. Gen. surgery on consult Thank you for this consultation, we will continue to follow. Dr. Kris Garcia I agree with the dictator's note, documented as a scribe by Marleen Amador.
--- NOTE | 2021-01-08 12:50 | P.PCN ---
Date of Procedure: 01/08/21 Procedure(s) Performed: BRIEF HISTORY: Patient is a 35-year-old, pleasant, white male admitted the hospital with abdominal pain associated with nausea vomiting and abdominal distention for the last 1 week duration. He had a similar hospitalization a week ago but had hematemesis and hence underwent an upper endoscopy and was noted to have a Yue-Mckee tear that has resolved and he was discharged home. 2 days later he presents with worsening symptoms and had a repeat Of abdomen and pelvis done that showed significant thickening of the jejunum with small bowel dilation. Also there was small amount of ascites. He was started on empiric antibiotics for possible infectious enteritis but no significant improvement in symptoms. He continues to have peripheral eosinophilia and because of the suspicion for years of age gastroenteritis he scheduled for an upper endoscopy/enteroscopy today. PROCEDURE PERFORMED: Esophagogastroduodenoscopy/enteroscopy with multiple biopsies. PREOPERATIVE DIAGNOSIS: Abdominal pain, nausea vomiting and abnormal CAT scan showing significant dilated thickened jejunal folds with small bowel dilation. IV sedation per anesthesia. PROCEDURE: After informed consent was obtained, the patient was brought into the endoscopy unit. IV sedation was administered by Anesthesia under continuous monitoring. Initially the Olympus GIF-140 video endoscope was inserted into the mouth. Esophagus intubated without any difficulty. It was gradually advanced into the stomach and duodenum and into the proximal jejunum carefully examined. Mucosal folds involving the proximal jejunum appeared very thickened and edema but no obvious inflammation noted. Multiple biopsies were done from the thickened mucosal folds in the proximal jejunum. Also there was thickening of the folds involving the third and fourth part of the duodenum which were biopsied. The bulb and the second part of the duodenum appeared normal. The scope at this time was withdrawn to the stomach, adequately insufflated with air, and upon careful examination, mucosa of the antrum, body, cardia and the fundus appeared normal. Multiple biopsies were done from the body and antrum of the stomach. The scope was withdrawn into the esophagus. The GE junction was located at 39 cm from the incisors. A hiatal hernia noted. The sizing folds also appeared slightly thickened and biopsies were done from this area. The esophagus appeared normal. There were no erosions or ulcerations seen and the patient tolerated the procedure well. IMPRESSION: 1. Significantly thickened folds involving the proximal jejunum with severe mucosal edema but no erythema or inflammation noted status post multiple biops ies to evaluate for eosinophilic gastroenteritis. 2. Thickened folds involving the duodenum as well as esophagus but normal- appearing stomach. RECOMMENDATIONS: The findings of this examination were discussed with the patient as well as his family. The endoscopic findings in the setting of peripheral eosinophilia and the clinical presentation is consistent with years of age gastroenteritis and hence will start him on empiric prednisone 40 mg daily until biopsy results are available. Diet will be advanced as tolerated..
[2021-01-08] MEDS: predniSONE 20 MG TAB PO SCH (14:12)
--- NOTE | 2021-01-08 16:49 | PN ---
PROGRESS NOTE DATE OF SERVICE: 01/08/2021 This 35-year-old gentleman was admitted with severe abdominal pain which was thought to be enteritis. Patient has significant eosinophilia also. Dr. Garcia is following the patient closely EGD with enteroscopy with multiple biopsies. The mucosa fold involving the proximal duodenum appeared to be very thickened and edema with no obvious inflammation was noted. Multiple biopsies at this time. There is no history of any fever, rigor or chills at this time. White count remains elevated at 22.4. Stool lactoferrin is negative and stool giardia is also negative. C difficile is also negative. Hematology/oncology evaluation in progress. No chest pain. No palpitations. No fever. PHYSICAL EXAMINATION: Alert and oriented x3. Pulse 88, blood pressure 111/61, respirations 16, temperature 98.2, pulse ox 98% on room air. HEENT: Conjunctivae normal. NECK: No jugular venous distention. CARDIOVASCULAR: S1, S2 muffled. RESPIRATION: Breath sounds diminished at the bases. No rhonchi. No crackles. ABDOMEN: Soft. Mild diffuse tenderness. LEGS: No edema. No swelling. NERVOUS SYSTEM: No focal deficit. LAB STUDIES: WBC 22.4, mainly eosinophilic. ASSESSMENT: 1. 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 2. Leukocytosis, possibly secondary to eosinophilia. 3. Hyponatremia. 4. History of anxiety. 5. Family history of GIST. 6. History of depression. 7. History of THC abuse. 8. History of nicotine dependence. 9. Obesity. RECOMMENDATIONS AND DISCUSSION: I recommend to continue current medications, continue with symptomatic treatment. We will closely monitor along with Dr. Garcia. Await biopsy reports. The patient's mother had also a GIST tumor which was resected at [facility] recently, according to the family. Overall prognosis is guarded because of the multiple complex medical issues. Further recommendations to follow. MMODL / IJN: [id number] / RONAK
--- NOTE | 2021-01-08 17:20 | XR ---
EXAMINATION TYPE: XR chest 1V portable DATE OF EXAM: 01/08/2021 COMPARISON: 01/04/2021 HISTORY: Abdominal pain TECHNIQUE: Single view FINDINGS: Heart and mediastinum are normal. Lungs are clear. Diaphragm is normal. Bony thorax is inta ct IMPRESSION: Normal chest. No change.
--- NOTE | 2021-01-08 23:06 | P.CONS ---
History of Present Illness - Reason for Consult Consult date: 01/08/21 eosinophilia Requesting physician: Trudy Napoles - Chief Complaint abd pain, N,V,D - History of Present Illness Mr. Rivera is a 35y.o. male we have been asked to see for leukocytosis and eosinophilia. No Hx of increased WBC, eosinophilic conditions, autoimmune disease, asthma or allergies. Pt states he uses testosterone and EQ for body building. Was not able to explain what "EQ" is so, found this: https://www.[employer]building.org/eq-equipoise-"EQ has become a very popular steroid with athletes and bodybuilders due to the fact that it has very low side effects and has anabolic properties which promote a steady gain in quality muscle mass over time. The steroid was tagged with the name Boldenone Undecylenate when it first became available as a veterinary steroid and was widely used in racehorses." Recently pt had upper GI eval for hematemesis when admitted on 12/30, c/o N,V post prandial nausea vomiting x 1 day, he eventually threw up blood. CT abd showed multiple areas of proximal jejunal colitis, multifocal enterocolitis. Concern for Crohn's disease. Had EGD, suspected Yue-Mckee tear that had stopped bleeding. He returned to the hospital with c/o abd pain with vomiting. He has been seen by Surgery, GI and IM. Review of Systems 14 point ROS is neg except as stated in HPI Past Medical History Past Medical History: No Reported History History of Any Multi-Drug Resistant Organisms: None Reported Additional Past Surgical History / Comment(s): arthroscopy wrist, endoscopy Past Psychological History: Anxiety, Depression Smoking Status: Former smoker Past Alcohol Use History: Occasional Additional Past Alcohol Use History / Comment(s): Patient quit smoking 12 years ago Past Drug Use History: Marijuana - Past Family History Mother Family Medical History: Cancer Medications and Allergies Home Medications Medication Instructions Recorded Confirmed Type Pantoprazole [Protonix] 40 mg PO HS 01/04/21 01/04/21 History Simethicone [Gas-X] 125 mg PO DAILY PRN 01/04/21 01/04/21 History bisacodyL [Dulcolax] 5 mg PO DAILY PRN 01/04/21 01/04/21 History Allergies Allergy/AdvReac Type Severity Reaction Status Date / Time orange (food color) Allergy Unknown Verified 01/04/21 06:23 Childhood Physical Exam Vitals: Vital Signs Temp Pulse Resp BP BP Pulse Ox 01/08/21 09:00 16 01/08/21 05:00 98.4 F 89 16 124/62 97 01/07/21 19:54 97.8 F 92 18 126/74 98 01/07/21 12:39 98.6 F 74 16 142/81 96 Intake and Output 01/07/21 01/08/21 01/08/21 22:59 06:59 14:59 Intake Total 1610 1700 Output Total 1 Balance 1610 1699 Intake: Intake, IV Titration 1370 1700 Amount Ampicillin-Sulbactam 3 gm 200 In Sodium Chloride 0.9% 100 ml @ 200 mls/hr IVPB Q8H [facility] Rx#:[id number] Piperacillin-Tazobactam 3 100 .375 gm In Sodium Chloride 0.9% 100 ml @ 25 mls/hr IVPB Q8HR [facility] Rx# :[id number] Sodium Chloride 0.9% 1, 1170 1500 000 ml @ 130 mls/hr IV . Q7H42M [facility] Rx#:[id number] metroNIDAZOLE-NS PMX 500 100 mg In Saline 1 100ml.bag @ 100 mls/hr IVPB Q8HR [facility] Rx#:[id number] Oral 240 Output: Emesis 1 Other: Voiding Method Toilet Toilet # Voids 2 # Bowel Movements 1 - Constitutional General appearance: average body habitus, cooperative, no acute distress - EENT Eyes: anicteric sclerae, EOMI ENT: hearing grossly normal, normal oropharynx - Neck Neck: no lymphadenopathy - Respiratory Respiratory: bilateral: CTA - Cardiovascular Rhythm: regular Heart sounds: normal: S1, S2 Abnormal Heart Sounds: no systolic murmur, no diastolic murmur, no rub, no S3 Gallop, no S4 Gallop, no click, no other leg Peripheral Edema: bilateral: None - Gastrointestinal General gastrointestinal: no absent bowel sounds, no decreased bowel sounds, no distended, no hepatomegaly, no hyperactive bowel sounds, normal bowel sounds, no organomegaly, no rigid, no scaphoid, soft, no splenomegaly, tenderness, no umbilical hernia, no ventral hernia - Integumentary multiple tattoos Integumentary: normal - Neurologic Neurologic: CNII-XII intact - Musculoskeletal Musculoskeletal: strength equal bilaterally - Psychiatric Psychiatric: A&O x's 3, appropriate affect, intact judgment & insight Results CBC & Chem 7: 01/08/21 06:03 01/07/21 05:59 Labs: Abnormal Lab Results - Last 24 Hours (Table) 01/07/21 01/07/21 01/08/21 Range/Units 05:59 20:32 06:03 WBC 22.4 H (3.8-10.6) k/uL Eosinophils # 9.7 H 11.6 H (0-0.7) k/uL Urine Ketones 2+ H (Negative) Ur Leukocyte Esterase Trace H (Negative) Urine Mucus Rare H (None) /hpf Urine Opiates Screen Detected H (NotDetected) Microbiology - Last 24 Hours (Table) 01/07/21 20:45 Stool Culture - Preliminary Stool Abdominal x-ray: report reviewed CT scan - abdomen: report reviewed CT scan - pelvis: report reviewed Assessment and Plan (1) Eosinophilia Current Visit: Yes Status: Acute Priority: High Code(s): D72.10 - EOSINOPHILIA, UNSPECIFIED SNOMED Code(s): 347984620 (2) Leukocytosis Current Visit: Yes Status: Acute Priority: High Code(s): D72.829 - ELEVATED WHITE BLOOD CELL COUNT, UNSPECIFIED SNOMED Code(s): 206956602 Plan: Labs ordered to evaluate for possible underlying causes of eosinophilia. Allergy, autoimmune disorder and genetic mutations are in the differential at this time. An eosinophilic leukemia is a possibility as well as this is associat ed with an AEC above 500 Agree with GI evaluation and colonoscopy. Will f/u with results and order further testing as needed Attests:I have performed H&P, developed impression and plan of care. Discussed with dictator. Agree with documentation, documented as a scribe.
[2021-01-09] MEDS: SODIUM CHLORIDE 0.9% 1,000 ML IV SCH ×3 (04:14→16:00)
[2021-01-09 06:55] LABS: Basophils # (A) 0.1 k/uL (0-0.2); Basophils % (A) 0 %; Eosinophils # (A) 4.2 k/uL (0-0.7); HCT 38.7 % (39.0-53.0); HGB 13.1 gm/dL (13.0-17.5); Lymphocytes # (A) 1.9 k/uL (1.0-4.8); Lymphocytes % (A) 12 %; MCHC 33.8 g/dL (31.0-37.0); MCV 91.8 fL (80.0-100.0); Monocytes # (A) 0.7 k/uL (0-1.0); Monocytes % (A) 5 %; Neutrophils # (A) 8.9 k/uL (1.3-7.7); Neutrophils % (A) 56 %; Platelet Count 409 k/uL (150-450); RBC 4.22 m/uL (4.30-5.90); RDW 15.3 % (11.5-15.5)
[2021-01-09] MEDS: HEPARIN SODIUM,PORCINE/PF 5,000 UNIT/0.5 ML SYRINGE SQ SCH ×2 (07:22→20:22)
[2021-01-09 07:33] LABS: Ferritin 65.9 ng/mL (22.0-322.0)
[2021-01-09 07:37] LABS: Eosinophils % (A) 26 %
[2021-01-09] MEDS: metroNIDAZOLE-NS PMX 500 MG in SALINE 1 100ML.BAG IVPB SCH ×3 (07:43→23:17)
[2021-01-09] MEDS: predniSONE 20 MG TAB PO SCH (07:44)
[2021-01-09] MEDS: PANTOPRAZOLE 40 MG/10 ML VIAL IV SCH (07:45)
[2021-01-09] MEDS: PIPERACILLIN-TAZOBACTAM 3.375 GM in SODIUM CHLORIDE 0.9% 100 ML IVPB SCH ×2 (08:45→15:59)
[2021-01-09 09:16] LABS: ALT 20 U/L (4-49); AST 40 U/L (17-59); African American GFR (CKD) >90 (>60 ml/min/1.73 sqM); Albumin 2.9 g/dL (3.5-5.0); Albumin/Globulin Ratio 1.3; Alkaline Phosphatase 56 U/L (38-126); Anion Gap 6 mmol/L; Blood Urea Nitrogen 6 mg/dL (9-20); Calcium 8.6 mg/dL (8.4-10.2); Carbon Dioxide 27 mmol/L (22-30); Chloride 105 mmol/L (98-107); Globulin 2.3 g/dL; Glucose 93 mg/dL (74-99); LDH 528 U/L (313-618); Non-African American GFR(CKD) >90 (>60 ml/min/1.73 sqM); Potassium 4.3 mmol/L (3.5-5.1); Sodium 138 mmol/L (137-145); Total Bilirubin 0.3 mg/dL (0.2-1.3); Total Protein 5.2 g/dL (6.3-8.2)
--- NOTE | 2021-01-09 12:28 | P.PN ---
<Lucrecia Irving - Last Filed: 01/09/21 12:25> Subjective Progress Note Date: 01/09/21 CHIEF COMPLAINT: Enteritis HISTORY OF PRESENT ILLNESS: Patient reports that he is feeling better today. No new complaints. Patient was diagnosed with eosinophilic gastroenteritis. He was started on prednisone by GI service. He reports decrease in his pain and decrease in the fullness sensation. He is tolerating diet. Denies any nausea or vomiting. He has been having bowel movements. He has been up and ambulate him. Afebrile. WBC is down from 22.4-16 PHYSICAL EXAM: VITAL SIGNS: Reviewed. GENERAL: Well-developed in no acute distress. HEENT: No sclera icterus. Extraocular movements grossly intact. Moist buccal mucosa. Head is atraumatic, normocephalic. ABDOMEN: Soft. Nondistended Nontender NEUROLOGIC: Alert and oriented. Cranial nerves II through XII grossly intact. ASSESSMENT: 1. Eosinophilic gastroenteritis 2. Leukocytosis PLAN: -Continue prednisone as recommended per GI service -Encourage patient to ambulate -Continue supportive care -Continue regular diet Physician Bottom Stainer note has been reviewed by physician. Signing provider agrees with the documented findings, assessment, and plan of care. Objective - Vital Signs Vital signs: Vital Signs Temp 98.3 F 01/09/21 05:35 Pulse 86 01/09/21 05:35 Resp 18 01/09/21 08:00 BP 137/80 01/09/21 05:35 Pulse Ox 97 01/09/21 05:35 Intake & Output 01/08/21 01/09/21 01/09/21 18:59 06:59 18:59 Intake Total 300 Balance 300 Intake: IV 300 Other: Voiding Method Toilet Toilet Toilet # Voids 2 2 - Labs CBC & Chem 7: 01/09/21 Unknown 01/09/21 05:55 Labs: Abnormal Lab Results - Last 24 Hours (Table) 01/08/21 01/08/21 01/09/21 Range/Units 11:42 17:24 05:55 WBC (3.8-10.6) k/uL RBC (4.30-5.90) m/uL Hct (39.0-53.0) % Neutrophils # (1.3-7.7) k/uL Eosinophils # (0-0.7) k/uL D-Dimer 6.62 H (<0.60) mg/L FEU BUN 6 L (9-20) mg/dL Total Protein 5.2 L (6.3-8.2) g/dL Albumin 2.9 L (3.5-5.0) g/dL IgE 120.00 H (0.00-114.00) IU/mL 01/09/21 Range/Units Unknown WBC 16.0 H (3.8-10.6) k/uL RBC 4.22 L (4.30-5.90) m/uL Hct 38.7 L (39.0-53.0) % Neutrophils # 8.9 H (1.3-7.7) k/uL Eosinophils # 4.2 H (0-0.7) k/uL D-Dimer (<0.60) mg/L FEU BUN (9-20) mg/dL Total Protein (6.3-8.2) g/dL Albumin (3.5-5.0) g/dL IgE (0.00-114.00) IU/mL <Jaziel Carcamo - Last Filed: 01/09/21 17:46> Subjective As above. Findings yesterday reviewed with GI. Findings and workup thus far is suggestive of eosinophilic gastroenteritis. Continue oral steroids. May discharge. Objective - Vital Signs Vital signs: Vital Signs Temp 98.4 F 01/09/21 14:00 Pulse 85 01/09/21 14:00 Resp 18 01/09/21 14:00 BP 105/63 01/09/21 14:00 Pulse Ox 96 01/09/21 14:00 Intake & Output 01/08/21 01/09/21 01/09/21 18:59 06:59 18:59 Intake Total 300 Balance 300 Intake: IV 300 Other: Voiding Method Toilet Toilet Toilet # Voids 2 2 - Labs CBC & Chem 7: 01/09/21 16:06 01/09/21 05:55 Labs: Abnormal Lab Results - Last 24 Hours (Table) 01/08/21 01/08/21 01/09/21 Range/Units 11:42 17:24 05:55 WBC (3.8-10.6) k/uL RBC (4.30-5.90) m/uL Hct (39.0-53.0) % Neutrophils # (1.3-7.7) k/uL Eosinophils # (0-0.7) k/uL D-Dimer 6.62 H (<0.60) mg/L FEU BUN 6 L (9-20) mg/dL Total Protein 5.2 L (6.3-8.2) g/dL Albumin 2.9 L (3.5-5.0) g/dL IgE 120.00 H (0.00-114.00) IU/mL 01/09/21 01/09/21 Range/Units 06:10 16:06 WBC 16.0 H 15.0 H (3.8-10.6) k/uL RBC 4.22 L (4.30-5.90) m/uL Hct 38.7 L (39.0-53.0) % Neutrophils # 8.9 H 9.9 H (1.3-7.7) k/uL Eosinophils # 4.2 H 2.5 H (0-0.7) k/uL D-Dimer (<0.60) mg/L FEU BUN (9-20) mg/dL Total Protein (6.3-8.2) g/dL Albumin (3.5-5.0) g/dL IgE (0.00-114.00) IU/mL Assessment and Plan (1) Enteritis Current Visit: Yes Status: Acute Code(s): K52.9 - NONINFECTIVE GASTROENTERITIS AND COLITIS, UNSPECIFIED SNOMED Code(s): 04273732
--- NOTE | 2021-01-09 14:40 | P.PN ---
Subjective Progress Note Date: 01/09/21 Principal diagnosis: Abdominal pain Patient was seen and examined today. He states he is feeling much better. He was able to eat yesterday 3 piece of pizza and a chicken wrap and had no abdominal pain, nausea, or vomiting. Did have a bowel movement today. Yesterday he underwent EGD with push enteroscopy with multiple biopsies. Findings consisted of significantly thickened folds involving the proximal jejunum and severe mucosal edema but no erythema or inflammation noted status post multiple biopsies to evaluate for a set of cephalic gastroenteritis. Thickened folds involving the duodenum as well as esophagus but normal-appearing stomach. Patient was started on oral prednisone 40 mg daily. Objective - Vital Signs Vital signs: Vital Signs Temp 98.3 F 01/09/21 05:35 Pulse 86 01/09/21 05:35 Resp 18 01/09/21 08:00 BP 137/80 01/09/21 05:35 Pulse Ox 97 01/09/21 05:35 Intake & Output 01/08/21 01/09/21 01/09/21 18:59 06:59 18:59 Intake Total 300 Balance 300 Intake: IV 300 Other: Voiding Method Toilet Toilet Toilet # Voids 2 2 - Exam General appearance: The patient is alert, oriented, appears in no acute distress. HET: Head is normocephalic and atraumatic. Conjunctiva pink. Sclera anicteric. Neck: Supple without lymphadenopathy. Abdomen: Soft, nontender, nondistended with bowel sounds. No guarding or rigidity. Extremities: Normal skin color and turgor. No pedal edema Skin: No rashes, no jaundice Neurological: No focal deficits. Alert and oriented 3. - Labs CBC & Chem 7: 01/09/21 Unknown 01/09/21 05:55 Labs: Abnormal Lab Results - Last 24 Hours (Table) 01/08/21 01/08/21 01/09/21 Range/Units 11:42 17:24 Unknown WBC 16.0 H (3.8-10.6) k/uL RBC 4.22 L (4.30-5.90) m/uL Hct 38.7 L (39.0-53.0) % Neutrophils # 8.9 H (1.3-7.7) k/uL Eosinophils # 4.2 H (0-0.7) k/uL D-Dimer 6.62 H (<0.60) mg/L FEU IgE 120.00 H (0.00-114.00) IU/mL Microbiology - Last 24 Hours (Table) 01/07/21 20:45 Stool Culture - Preliminary Stool Assessment and Plan (1) Abdominal pain Narrative/Plan: 35-year-old male who was recently admitted and discharged earlier this week with complaints of abdominal pain associated with nausea and vomiting. That time he had hematemesis and underwent an EGD that showed small hiatal hernia and antral erosive gastritis. Patient was sent home on Protonix. Has no previous history of ulcerative colitis or Crohn's disease. At that time his CT of his abdomen did show mild colitis possible gastroenteritis. Repeat CT of the abdomen shows multiple dilated proximal small bowel loops with significant wall thickening has progressed compared to old exam. There is abdominal ascites that is increased compared to old exam. Transition point of small bowel not seen. This could relate to severe gastroenteritis or inflammatory bowel disease. The significant wall thickening suggests that this is not a mechanical bowel obstruction. He's been started on Unasyn. Inflammatory markers normal. Continue IV antibiotics. Likely we are dealing with an infectious etiology. Gen. surgery on consult. Leukocytosis persists including increased abdominal pain and nausea and vomiting. 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 Will proceed with EGD with push enteroscopy. Procedure discussed with patient in detail and he is agreeable to proceed. HET with push enteroscopy completed showing significantly thickened folds involving the proximal jejunum with severe mucosal edema but no erythema or inflammation noted status post multiple biopsies to evaluate for eosinophilic gastroenteritis. Thickened folds involving the duodenum as well as esophagus with normal-appearing stomach. Patient was started on empiric prednisone 40 mg daily. Current Visit: Yes Status: Acute Code(s): R10.9 - UNSPECIFIED ABDOMINAL PAIN SNOMED Code(s): 70303220 (2) Enteritis Current Visit: Yes Status: Acute Code(s): K52.9 - NONINFECTIVE GASTROENT ERITIS AND COLITIS, UNSPECIFIED SNOMED Code(s): 03408221 (3) Ascites Current Visit: Yes Status: Acute Code(s): R18.8 - OTHER ASCITES SNOMED Code(s): 526470728 Plan: 1. Continue IV antibiotics 2. Diet as tolerated 3. Protonix 40 mg twice a day 4. Continue prednisone 40 mg daily, plan for taper dose of 5 mg a week on discharge 5. Patient will need to follow-up with gastroenterology for biopsy results, discussion of possible consideration of ALLERGY testing based on biopsy results. Thank you for this consultation, we will continue to follow. Dr. Kris Garcia I agree with the dictator's note, documented as a scribe by Marleen Amador.
--- NOTE | 2021-01-09 15:29 | P.PN ---
Subjective Progress Note Date: 01/09/21 Principal diagnosis: leukocytosis and abdominal pain He is feeling a little better. He admits to the use of anabolic steroids. Objective - Vital Signs Vital signs: Vital Signs Temp 98.4 F 01/09/21 14:00 Pulse 85 01/09/21 14:00 Resp 18 01/09/21 14:00 BP 105/63 01/09/21 14:00 Pulse Ox 96 01/09/21 14:00 Intake & Output 01/08/21 01/09/21 01/09/21 18:59 06:59 18:59 Intake Total 300 Balance 300 Intake: IV 300 Other: Voiding Method Toilet Toilet Toilet # Voids 2 2 - Exam Head:ncat Neck:supple alert NAD Lungs: CTA Abdomen: tender Ext: No edema Miltiple tatooes - Labs CBC & Chem 7: 01/09/21 Unknown 01/09/21 05:55 Labs: Abnormal Lab Results - Last 24 Hours (Table) 01/08/21 01/08/21 01/09/21 Range/Units 11:42 17:24 05:55 WBC (3.8-10.6) k/uL RBC (4.30-5.90) m/uL Hct (39.0-53.0) % Neutrophils # (1.3-7.7) k/uL Eosinophils # (0-0.7) k/uL D-Dimer 6.62 H (<0.60) mg/L FEU BUN 6 L (9-20) mg/dL Total Protein 5.2 L (6.3-8.2) g/dL Albumin 2.9 L (3.5-5.0) g/dL IgE 120.00 H (0.00-114.00) IU/mL 01/09/21 Range/Units Unknown WBC 16.0 H (3.8-10.6) k/uL RBC 4.22 L (4.30-5.90) m/uL Hct 38.7 L (39.0-53.0) % Neutrophils # 8.9 H (1.3-7.7) k/uL Eosinophils # 4.2 H (0-0.7) k/uL D-Dimer (<0.60) mg/L FEU BUN (9-20) mg/dL Total Protein (6.3-8.2) g/dL Albumin (3.5-5.0) g/dL IgE (0.00-114.00) IU/mL Assessment and Plan (1) Abdominal pain Current Visit: Yes Status: Acute Code(s): R10.9 - UNSPECIFIED ABDOMINAL PAIN SNOMED Code(s): 04963398 (2) Colitis Current Visit: Yes Status: Acute Code(s): K52.9 - NONINFECTIVE GASTROENTERITIS AND COLITIS, UNSPECIFIED SNOMED Code(s): 68439170 (3) Eosinophilia Current Visit: Yes Status: Acute Priority: High Code(s): D72.10 - EOSINOPHILIA, UNSPECIFIED SNOMED Code(s): 394311879 (4) Leukocytosis Current Visit: Yes Status: Acute Priority: High Code(s): D72.829 - ELEVATED WHITE BLOOD CELL COUNT, UNSPECIFIED SNOMED Code(s): 516414266 Plan: Continue to await finalized testing for primary bone marrow disorder. At this time a reactive process is most likely. Physician attest: I have completed the full history and physical and agree with above dictation, dictated as a ascribe
[2021-01-09 16:38] LABS: Basophils # (A) 0.1 k/uL (0-0.2); Basophils % (A) 1 %; Eosinophils # (A) 2.5 k/uL (0-0.7); Eosinophils % (A) 17 %; HCT 41.7 % (39.0-53.0); HGB 13.4 gm/dL (13.0-17.5); Lymphocytes % (A) 13 %; MCH 30.1 pg (25.0-35.0); MCV 93.8 fL (80.0-100.0); Mean Platelet Volume 6.9; Monocytes # (A) 0.4 k/uL (0-1.0); Monocytes % (A) 3 %; Neutrophils # (A) 9.9 k/uL (1.3-7.7); Neutrophils % (A) 66 %; Platelet Count 382 k/uL (150-450); RBC 4.44 m/uL (4.30-5.90); RDW 14.8 % (11.5-15.5)
--- NOTE | 2021-01-09 19:21 | PN ---
PROGRESS NOTE DATE OF SERVICE: 01/09/2021 This 35-year-old gentleman who was admitted with significant abdominal pain also had possible enteritis. The endoscopy showed significant mucosal thickening, mucosal folds at this time. The patient also had persistent eosinophilia. D-dimer was also elevated. A chest x-ray which was reviewed personally by me showed no acute abnormality. I would also recommend a CT angio of the chest. The patient was started on empiric steroids with some relief in the symptoms. No chest pain. No palpitations. No fever. EXAM: Alert and oriented x3. Pulse 85, blood pressure 105/60, respiration 18, temperature 98.4, pulse ox 98% on room air. HEENT: Conjunctivae normal. Oral mucosa moist. NECK: No jugular venous distention. No lymph node enlargement. CARDIOVASCULAR: S1, S2, muffled. No S3, no S4, RESPIRATORY: Diminished breath sounds at the bases. A few scattered rhonchi, no crackles. ABDOMEN: Soft. Mild diffuse discomfort. No guarding. No mass palpable. LEGS: No edema, no swelling. NERVOUS SYSTEM: No focal deficits. LABS: WBC 22.4. IgE is 120. Stools are negative. ASSESSMENT: 1. Abdominal pain possibly secondary to acute eosinophilic enteritis status post EGD and enteroscopy and biopsies showing very prominent folds. 2. Leukocytosis and eosinophilia of undetermined etiology. 3. Hyponatremia. 4. History of anxiety. 5. Family history of just GIST. 6. History of depression. 7. History of THC abuse. 8. History of nicotine dependence. 9. Obesity. RECOMMENDATIONS: Recommend to continue current management and symptomatic treatment. Repeat labs. Otherwise, I would also recommend empiric steroids. Closely follow with Hematology/Oncology. Guarded prognosis because of multiple complex medical issues. Further recommendations to follow. MMODL / IJN: [id number] /
--- NOTE | 2021-01-09 22:13 | CT ---
EXAMINATION TYPE: CT angio chest DATE OF EXAM: 01/09/2021 COMPARISON: None HISTORY: Pt here for bloating/distension due to recent scope. Not reporting any CP or SOB. CT DLP: 470.20 mGycm Automated exposure control for dose reduction was used. CONTRAST: Performed with IV Contrast, patient injected with 100 mL of Isovue 370. There are 3-D post processed images. The lungs are clear of consolidation. There is no evidence of a pulmonary mass. There is no pleural e ffusion. There is no pericardial effusion. There is abdominal ascites noted. There is no mediastinal adenopathy. There are no hilar masses. There is normal contrast opacification of the pulmonary arteries. There are no filling defects. Thoracic aorta appears intact. There is no aneurysm or dissection. Thoracic spine is intact. There is no compression fracture. Sternum is intact . IMPRESSION: No evidence of pulmonary embolism. There is abdominal ascites noted. Ascites similar to old abdomen CT scan of 01/04/2021.
[2021-01-10] MEDS: PIPERACILLIN-TAZOBACTAM 3.375 GM in SODIUM CHLORIDE 0.9% 100 ML IVPB SCH ×3 (00:39→16:12)
[2021-01-10] MEDS: SODIUM CHLORIDE 0.9% 1,000 ML IV SCH ×2 (06:44→23:58)
[2021-01-10 07:14] LABS: Basophils # (A) 0.1 k/uL (0-0.2); Basophils % (A) 0 %; Eosinophils # (A) 8.1 k/uL (0-0.7); HCT 39.9 % (39.0-53.0); HGB 13.2 gm/dL (13.0-17.5); Lymphocytes % (A) 10 %; MCH 31.2 pg (25.0-35.0); MCHC 33.1 g/dL (31.0-37.0); MCV 94.4 fL (80.0-100.0); Mean Platelet Volume 7.2; Monocytes # (A) 0.6 k/uL (0-1.0); Monocytes % (A) 3 %; Neutrophils # (A) 8.9 k/uL (1.3-7.7); Neutrophils % (A) 45 %; Platelet Count 360 k/uL (150-450); RBC 4.23 m/uL (4.30-5.90); WBC 19.9 k/uL (3.8-10.6)
[2021-01-10 07:22] LABS: Eosinophils % (A) 41 %
[2021-01-10] MEDS: predniSONE 20 MG TAB PO SCH (08:18)
[2021-01-10] MEDS: HEPARIN SODIUM,PORCINE/PF 5,000 UNIT/0.5 ML SYRINGE SQ SCH ×2 (08:18→22:16)
[2021-01-10] MEDS: PANTOPRAZOLE 40 MG/10 ML VIAL IV SCH (08:18)
[2021-01-10] MEDS: metroNIDAZOLE-NS PMX 500 MG in SALINE 1 100ML.BAG IVPB SCH ×2 (08:18→15:06)
[2021-01-10 11:58] LABS: African American GFR (CKD) 98.9 (60.0-200.0); Anion Gap 10.7 mmol/L (4.00-12.00); BUN/Creat Ratio 7.66 Ratio (12.00-20.00); Blood Urea Nitrogen 8.4 mg/dL (9.0-27.0); Calcium 8.3 mg/dL (8.7-10.3); Carbon Dioxide 26.2 mmol/L (21.6-31.8); Non-African American GFR(CKD) 85.3 (60.0-200.0); Potassium 3.8 mmol/L (3.5-5.5)
--- NOTE | 2021-01-10 14:26 | PN ---
PROGRESS NOTE DATE OF SERVICE: 01/10/2021 This 35-year-old gentleman who was admitted with abdominal discomfort had significantly enlarged mucosal folds. The biopsy report possibly showed eosinophilic esophagitis and enteritis, also. The patient was started on low-dose steroids. Dr. Garcia and multiple consultants are following the patient closely. CT scan of the abdomen has been recommended. The patient also has some ascites. No chest pain. No palpitation. PHYSICAL EXAMINATION: Alert and oriented x3. Pulse 82, blood pressure 113/73, respiration 14, temperature 98.4, pulse ox 96% on room air. HEENT: Conjunctivae normal. NECK: No jugular venous distention. CARDIOVASCULAR: S1, S2 muffled. RESPIRATION: Breath sounds diminished at the bases. A few scattered rhonchi. ABDOMEN: Soft. Mild diffuse discomfort, though much improved. No distention. Bowel sounds present. No guarding. No rigidity. LEGS: No edema. No swelling. NERVOUS SYSTEM: No focal deficit. LAB STUDIES: WBC 19.9. Sodium 143, potassium 3.8. ASSESSMENT: 1. Abdominal pain, possibly secondary to acute eosinophilic enteritis and possibly eosinophilic esophagitis, status post EGD and enteroscopy and biopsy showing very prominent mucosal folds. 2. Leukocytosis and eosinophilia of undetermined etiology. 3. Hypatremia. 4. History of anxiety. 5. Family history of GIST. 6. History of depression. 7. History of THC abuse. 8. History of nicotine dependence. 9. Obesity. RECOMMENDATIONS AND DISCUSSION: I recommend to continue current medications, continue with symptomatic treatment. Otherwise at this time I recommend continuing the steroids. Closely follow with Gastroenterology. Prognosis guarded. CTA of the abdomen and pelvis. Guarded prognosis. Further recommendations to follow. MMODL / IJN: [id number] / [facility]
--- NOTE | 2021-01-10 16:44 | P.PN ---
Subjective Progress Note Date: 01/10/21 Principal diagnosis: Enteritis Patient doing well today. Tolerating solid foods. Pathology results reviewed. Duodenal and esophageal biopsies consistent with eosinophilic process. Apparently a repeat CAT scan of the abdomen is ordered. He would like to go home. White blood cell count go up slightly to 19.9. He is now on oral steroids. Objective - Vital Signs Vital signs: Vital Signs Temp 98.4 F 01/10/21 11:30 Pulse 82 01/10/21 11:30 Resp 14 01/10/21 11:30 BP 113/73 01/10/21 11:30 Pulse Ox 96 01/10/21 11:30 Intake & Output 01/09/21 01/10/21 01/10/21 18:59 06:59 18:59 Intake Total 725 Balance 725 Intake: Intake, IV Titration 725 Amount Piperacillin-Tazobactam 3 100 .375 gm In Sodium Chloride 0.9% 100 ml @ 25 mls/hr IVPB Q8HR [facility] Rx# :[id number] Sodium Chloride 0.9% 1, 525 000 ml @ 75 mls/hr IV . [id number] [facility] Rx#:[id number] metroNIDAZOLE-NS PMX 500 100 mg In Saline 1 100ml.bag @ 100 mls/hr IVPB Q8HR [facility] Rx#:[id number] Other: Voiding Method Toilet Toilet - Exam Abdomen: Soft, nondistended, no appreciable tenderness. Minimal upper abdominal tenderness - Labs CBC & Chem 7: 01/10/21 06:40 01/10/21 06:40 Labs: Abnormal Lab Results - Last 24 Hours (Table) 01/10/21 01/10/21 Range/Units 06:40 06:40 WBC 19.9 H (3.8-10.6) k/uL RBC 4.23 L (4.30-5.90) m/uL Neutrophils # 8.9 H (1.3-7.7) k/uL Eosinophils # 8.1 H (0-0.7) k/uL BUN 8.4 L (9.0-27.0) mg/dL BUN/Creatinine Ratio 7.66 L (12.00-20.00) Ratio Calcium 8.3 L (8.7-10.3) mg/dL Assessment and Plan (1) Enteritis Narrative/Plan: Patient doing better at this time. Continue steroids per GI. Will review CAT scan that is ordered. Current Visit: Yes Status: Acute Code(s): K52.9 - NONINFECTIVE KEV ROENTERITIS AND COLITIS, UNSPECIFIED SNOMED Code(s): 56019775
--- NOTE | 2021-01-10 17:24 | P.PN ---
Subjective Progress Note Date: 01/10/21 Principal diagnosis: Abdominal pain Patient was seen and examined today. He states he continues to feel much better. Just feeling a little fatigued. Patient has had an elevated d-dimer. He had a CT angiogram of the chest which was negative for pulmonary embolism. He is denying any shortness of breath, chest pain, abdominal pain, nausea or vomiting. States bowel movements are normal. He underwent EGD with push enteroscopy with multiple biopsies. Findings consisted of significantly thickened folds involving the proximal jejunum and severe mucosal edema but no erythema or inflammation noted status post multiple biopsies to evaluate for a set of cephalic gastroenteritis. Thickened folds involving the duodenum as well as esophagus but normal-appearing stomach. Patient was started on oral prednisone 40 mg daily. Plan is for discharge home. Patient will be on a prednisone taper dose Objective - Vital Signs Vital signs: Vital Signs Temp 98.4 F 01/10/21 11:30 Pulse 82 01/10/21 11:30 Resp 14 01/10/21 11:30 BP 113/73 01/10/21 11:30 Pulse Ox 96 01/10/21 11:30 Intake & Output 01/09/21 01/10/21 01/10/21 18:59 06:59 18:59 Intake Total 725 Balance 725 Intake: Intake, IV Titration 725 Amount Piperacillin-Tazobactam 3 100 .375 gm In Sodium Chloride 0.9% 100 ml @ 25 mls/hr IVPB Q8HR [facility] Rx# :[id number] Sodium Chloride 0.9% 1, 525 000 ml @ 75 mls/hr IV . [id number] [facility] Rx#:[id number] metroNIDAZOLE-NS PMX 500 100 mg In Saline 1 100ml.bag @ 100 mls/hr IVPB Q8HR [facility] Rx#:[id number] Other: Voiding Method Toilet Toilet - Exam General appearance: The patient is alert, oriented, appears in no acute distress. HET: Head is normocephalic and atraumatic. Conjunctiva pink. Sclera anicteric. Neck: Supple without lymphadenopathy. Abdomen: Soft, nontender, nondistended with bowel sounds. No guarding or rigi dity. Extremities: Normal skin color and turgor. No pedal edema Skin: No rashes, no jaundice Neurological: No focal deficits. Alert and oriented 3. - Labs CBC & Chem 7: 01/10/21 06:40 01/10/21 06:40 Labs: Abnormal Lab Results - Last 24 Hours (Table) 01/10/21 01/10/21 Range/Units 06:40 06:40 WBC 19.9 H (3.8-10.6) k/uL RBC 4.23 L (4.30-5.90) m/uL Neutrophils # 8.9 H (1.3-7.7) k/uL Eosinophils # 8.1 H (0-0.7) k/uL BUN 8.4 L (9.0-27.0) mg/dL BUN/Creatinine Ratio 7.66 L (12.00-20.00) Ratio Calcium 8.3 L (8.7-10.3) mg/dL Microbiology - Last 24 Hours (Table) 01/07/21 20:45 Stool Culture - Preliminary Stool Assessment and Plan (1) Abdominal pain Narrative/Plan: 35-year-old male who was recently admitted and discharged earlier this week with complaints of abdominal pain associated with nausea and vomiting. That time he had hematemesis and underwent an EGD that showed small hiatal hernia and antral erosive gastritis. Patient was sent home on Protonix. Has no previous history of ulcerative colitis or Crohn's disease. At that time his CT of his abdomen did show mild colitis possible gastroenteritis. Repeat CT of the abdomen shows multiple dilated proximal small bowel loops with significant wall thickening has progressed compared to old exam. There is abdominal ascites that is increased compared to old exam. Transition point of small bowel not seen. This could relate to severe gastroenteritis or inflammatory bowel disease. The significant wall thickening suggests that this is not a mechanical bowel obstruction. He's been started on Unasyn. Inflammatory markers normal. Continue IV antibiotics. Likely we are dealing with an infectious etiology. Gen. surgery on consult. Leukocytosis persists including increased abdominal pain and nausea and vomiting. 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 Will proceed with EGD with push enteroscopy. Procedure discussed with patient in detail and he is agreeable to proceed. HET with push enteroscopy completed showing significantly thickened folds involving the proximal jejunum with severe mucosal edema but no erythema or inflammation noted status post multiple biopsies to evaluate for eosinophilic gastroenteritis. Thickened folds involving the duodenum as well as esophagus with normal-appearing stomach. Patient was started on empiric prednisone 40 mg daily. Current Visit: Yes Status: Acute Code(s): R10.9 - UNSPECIFIED ABDOMINAL PAIN SNOMED Code(s): 14578872 (2) Enteritis Current Visit: Yes Status: Acute Code(s): K52.9 - NONINFECTIVE GASTROENTERITIS AND COLITIS, UNSPECIFIED SNOMED Code(s): 57990387 (3) Ascites Current Visit: Yes Status: Acute Code(s): R18.8 - OTHER ASCITES SNOMED Code(s): 164992503 Plan: 1. Continue IV antibiotics 2. Diet as tolerated 3. Protonix 40 mg twice a day 4. Continue prednisone 40 mg daily, plan for taper dose of 5 mg a week on discharge. Prescription sent. 5. Patient will need to follow-up with gastroenterology for biopsy results, discussion of possible consideration of ALLERGY testing based on biopsy results. Thank you for this consultation, patient is cleared for discharge from gastroenterology. Dr. Kris Garcia I agree with the dictator's note, documented as a scribe by Marleen Amador.
--- NOTE | 2021-01-10 19:29 | P.PN ---
Subjective Progress Note Date: 01/10/21 Principal diagnosis: leukocytosis and abdominal pain Patient seen and examined today, no abdominal pain, no blood in stools. Awaiting complete labs. Objective - Vital Signs Vital signs: Vital Signs Temp 98.4 F 01/10/21 11:30 Pulse 82 01/10/21 11:30 Resp 14 01/10/21 11:30 BP 113/73 01/10/21 11:30 Pulse Ox 96 01/10/21 11:30 Intake & Output 01/10/21 01/10/21 01/11/21 06:59 18:59 06:59 Intake Total 725 Balance 725 Intake: Intake, IV Titration 725 Amount Piperacillin-Tazobactam 3 100 .375 gm In Sodium Chloride 0.9% 100 ml @ 25 mls/hr IVPB Q8HR [facility] Rx# :[id number] Sodium Chloride 0.9% 1, 525 000 ml @ 75 mls/hr IV . [id number] [facility] Rx#:[id number] metroNIDAZOLE-NS PMX 500 100 mg In Saline 1 100ml.bag @ 100 mls/hr IVPB Q8HR [facility] Rx#:[id number] Other: Voiding Method Toilet # Voids 2 - Exam Head:ncat Neck:supple alert NAD Lungs: CTA Abdomen: tender Ext: No edema Miltiple tatooes - Labs CBC & Chem 7: 01/10/21 06:40 01/10/21 06:40 Labs: Abnormal Lab Results - Last 24 Hours (Table) 01/10/21 01/10/21 Range/Units 06:40 06:40 WBC 19.9 H (3.8-10.6) k/uL RBC 4.23 L (4.30-5.90) m/uL Neutrophils # 8.9 H (1.3-7.7) k/uL Eosinophils # 8.1 H (0-0.7) k/uL BUN 8.4 L (9.0-27.0) mg/dL BUN/Creatinine Ratio 7.66 L (12.00-20.00) Ratio Calcium 8.3 L (8.7-10.3) mg/dL Microbiology - Last 24 Hours (Table) 01/07/21 20:45 Stool Culture - Preliminary Stool Assessment and Plan (1) Abdominal pain Current Visit: Yes Status: Acute Code(s): R10.9 - UNSPECIFIED ABDOMINAL PAIN SNOMED Code(s): 01931288 (2) Colitis Current Visit: Yes Status: Acute Code(s): K52.9 - NONINFECTIVE GASTROENTERITIS AND COLITIS, UNSPECIFIED SNOMED Code(s): 01733637 (3) Eosinophilia Current Visit: Yes Status: Acute Priority: High Code(s): D72.10 - EOSINOPHILIA, UNSPECIFIED SNOMED Code(s): 248583411 (4) Leukocytosis Current Visit: Yes Status: Acute Priority: High Code(s): D72.829 - ELEVATED WHITE BLOOD CELL COUNT, UNSPECIFIED SNOMED Code(s): 518713416 Plan: Continue to await finalized testing for primary bone marrow disorder. At this time a reactive process is most likely. He will follow up in office in 3-4 weeks after completion of steroids to re- evaluate CBC and symptoms Physician attest: I have completed the full history and physical and agree with above dictation, dictated as a ascribe
[2021-01-11] MEDS: PIPERACILLIN-TAZOBACTAM 3.375 GM in SODIUM CHLORIDE 0.9% 100 ML IVPB SCH ×2 (00:25→10:37)
[2021-01-11] MEDS: metroNIDAZOLE-NS PMX 500 MG in SALINE 1 100ML.BAG IVPB SCH ×2 (00:26→10:36)
--- NOTE | 2021-01-11 00:34 | CT ---
EXAMINATION TYPE: CT angio abdomen pelvis DATE OF EXAM: 01/10/2021 COMPARISON: 01/04/2021 HISTORY: possible aneurysm CT DLP: 1613 mGycm Automated exposure control for dose reduction was used. Contrast: 100 mL [id number] Technique: Axial images 5 mm thick sections. Reconstructed images in the coronal plane. Pre and postc ontrast imaging is performed. Images are optimized for aortic evaluation. FINDINGS: Limited CT sections are obtained through the lung bases which are clear CT ABDOMEN: Some minimal fluid is adjacent to the liver. Liver and spleen are normal density without discrete masses or cysts. Gallbladder is decompressed. The pancreas is normal. Adrenal glands are nor mal. Kidneys appear normal without masses or hydronephrosis. No renal stones are evident. There is a cyst in the posterior lateral right kidney measuring 2.7 cm. Aorta appears normal. Inferior vena cava is unremarkable. Loops of bowel within the pelvis as visualized are normal. CT PELVIS: Moderate free fluid is within the pelvis. Bladder is normal. Prostate appears normal. IMPRESSION: 1. NO ANEURYSMAL DILATATION TO SUGGEST AORTIC ANEURYSM. NO AORTIC DISSECTION IS IDENTIFIED.
[2021-01-11 04:23] VITALS: BP 112/68; PULSE 79; RESP 18; TEMP 98.8
[2021-01-11] MEDS: HEPARIN SODIUM,PORCINE/PF 5,000 UNIT/0.5 ML SYRINGE SQ SCH (08:22)
[2021-01-11] MEDS: predniSONE 20 MG TAB PO SCH (08:22)
[2021-01-11 09:59] VITALS: BMI 34.7
[2021-01-11] MEDS: PANTOPRAZOLE 40 MG/10 ML VIAL IV SCH (10:37)
--- NOTE | 2021-01-11 18:32 | DS ---
DISCHARGE SUMMARY FINAL DIAGNOSES: 1. 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 2. Leukocytosis and eosinophilia of undetermined etiology. 3. Hypertension. 4. History of anxiety. 5. Family history of GIST. 6. History of depression. 7. History of THC abuse. 8. Remote history of nicotine dependence. 9. Obesity. DISCHARGE DISPOSITION: The patient will be discharged in stable condition with guarded prognosis. HISTORY OF PRESENT ILLNESS: This 35-year-old gentleman with a past medical history of multiple medical problems was admitted with abdominal pain and features of enteritis. The patient was evaluated and a small-bowel biopsy was done, as mentioned earlier. Please refer Dr. Garcia's notes for further details. The biopsy report showed significant eosinophilia. Peripheral eosinophilia was also noted. The patient improved significantly with p.o. steroids. The patient is discharged home with the following advice and medications. CT angio of the chest and abdomen was showing no evidence of any vascular pathology at this time. 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 On exam, vitals are stable. CARDIOVASCULAR: S1, S2 muffled. ABDOMEN: Soft. NERVOUS SYSTEM: No focal deficit. DISCHARGE ADVICE AND MEDICATIONS: 1. Diet is cardiac. 2. Activity limited until followup. 3. Follow up with Dr. Prasad in one week. 4. Follow up with Dr. Carcamo as recommended. 5. Follow up with Dr. Faiza Garcia as recommended. 6. Prednisone taper: That will be 40 mg daily and taper per Gastroenterology 5 mg every week. 7. Dulcolax p.r.n. 8. Gas-X. 9. Protonix 40 mg at bedtime. Once again, the patient will be discharged in stable condition with guarded prognosis. MMODL / IJN: [id number] /
== END 2021-01-11 12:43 | disposition home or self-care (01) | DRG 391 ==
LOC: EC 02:52 → 5NMEDONC 06:11 → INTOOBSV 01-07 10:21 → OBSVTOIN 01-07 10:21
PROVIDERS: ADMIT Hospitalist; ATTEND Hospitalist
PROC: 0DBA8ZX Excision of Jejunum, Via Natural or Artificial Opening Endoscopic, Diagnostic (ICD-10-PCS; 2021-01-08)
PROC: 0DB58ZX Excision of Esophagus, Via Natural or Artificial Opening Endoscopic, Diagnostic (ICD-10-PCS; 2021-01-08)
PROC: 0DB98ZX Excision of Duodenum, Via Natural or Artificial Opening Endoscopic, Diagnostic (ICD-10-PCS; principal; 2021-01-08 07:30)
PROC: 0DB78ZX Excision of Stomach, Pylorus, Via Natural or Artificial Opening Endoscopic, Diagnostic (ICD-10-PCS; 2021-01-08 07:30)
DX: K52.81 Eosinophilic gastritis or gastroenteritis (principal); K22.6 Gastro-esophageal laceration-hemorrhage syndrome; E87.1 Hypo-osmolality and hyponatremia; R18.8 Other ascites; K20.0 Eosinophilic esophagitis; F17.210 Nicotine dependence, cigarettes, uncomplicated; F41.9 Anxiety disorder, unspecified; Z20.822 Contact with and (suspected) exposure to COVID-19; K29.60 Other gastritis without bleeding; K42.9 Umbilical hernia without obstruction or gangrene; K44.9 Diaphragmatic hernia without obstruction or gangrene; F32.9 Major depressive disorder, single episode, unspecified; E66.9 Obesity, unspecified; I10 Essential (primary) hypertension; K59.00 Constipation, unspecified; Z68.34 Body mass index [BMI] 34.0-34.9, adult; Z91.018 Allergy to other foods; Z86.59 Personal history of other mental and behavioral disorders; Z87.19 Personal history of other diseases of the digestive system
CPT/HCPCS: 36415; 43239; 44378; 71045; 71275; 74022; 74174; 74176; 80048; 80053; 80306; 81001; 82150; 82728; 82785; 83088; 83615; 83630; 83690; 83735; 84100; 85025; 85379; 85652; 86140; 86682; 87045; 87046; 87324; 87329; 87635; 88305; 96361; 96372; 96374; 96375; 99285

== ENCOUNTER → 2021-01-14 | Outpatient (CLI) | payer OTHER ==
[2021-01-14 15:38] LABS: Basophils # (A) 0.08 X 10*3/uL (0.00-0.10); Basophils % (A) 0.8 %; Eosinophils # (A) 1.03 X 10*3/uL (0.04-0.35); Eosinophils % (A) 10.4 %; HCT 44.8 % (39.6-50.0); HGB 14.5 g/dL (13.0-17.0); Lymphocytes # (A) 3.72 X 10*3/uL (0.90-5.00); Lymphocytes % (A) 37.6 %; MCH 30.8 pg (27.0-32.0); MCHC 32.4 g/dL (32.0-37.0); MCV 95.1 fL (80.0-97.0); Mean Platelet Volume 9.9 fL (9.5-12.2); Monocytes # (A) 0.74 X 10*3/uL (0.20-1.00); Monocytes % (A) 7.5 %; Neutrophils # (A) 4.27 X 10*3/uL (1.80-7.70); Neutrophils % (A) 43.2 %; Platelet Count 388 X 10*3/uL (140-440); RBC 4.71 X 10*6/uL (4.40-5.60); RDW 15.9 % (11.5-14.5); WBC 9.89 X 10*3/uL (4.50-10.00)
== END | disposition home or self-care (01) ==
LOC: LABWHC1 08:21
PROVIDERS: ATTEND Registered Nurse
DX: D64.9 Anemia, unspecified (principal); D72.829 Elevated white blood cell count, unspecified; R79.89 Other specified abnormal findings of blood chemistry
CPT/HCPCS: 36415; 85025

== ENCOUNTER 2021-08-05 02:06 | Emergency (ER) | payer OTHER ==
[2021-08-05 02:12] VITALS: RESP 18; TEMP 98.4
[2021-08-05] MEDS ORDERED: OSELTAMIVIR 75 MG CAP PO STA (03:40)
[2021-08-05] MEDS ORDERED: ACETAMINOPHEN TAB 500 MG TAB PO STA (03:40)
[2021-08-05] MEDS ORDERED: diphenhydrAMINE 50 MG CAP PO STA (03:41)
--- NOTE | 2021-08-05 03:43 | ED ---
URI HPI - General Chief Complaint: Upper Respiratory Infection Stated Complaint: Body aches Time Seen by Provider: 08/05/21 03:34 Source: patient, RN notes reviewed Mode of arrival: ambulatory Limitations: no limitations - History of Present Illness MD Complaint: fever, cough, nasal congestion - Related Data Previous Rx's Medication Instructions Recorded Dexamethasone [Decadron] 6 mg PO DAILY #5 tablet 05/08/21 Ondansetron Odt [Zofran Odt] 4 mg PO Q8HR PRN #15 tab 05/08/21 Allergies Allergy/AdvReac Type Severity Reaction Status Date / Time orange (food color) Allergy Unknown Verified 08/05/21 02:12 Childhood Review of Systems ROS Statement: Those systems with pertinent positive or pertinent negative responses have been documented in the HPI. ROS Other: All systems not noted in ROS Statement are negative. 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 Vital signs reviewed. Cranial nerves II through XII grossly intact Limitations: no limitations General appearance: alert, in distress Head exam: Present: atraumatic, normocephalic, normal inspection Eye exam: Present: normal appearance, PERRL, EOMI. Absent: scleral icterus, conjunctival injection, periorbital swelling ENT exam: Present: normal exam, normal oropharynx, mucous membranes moist, TM's normal bilaterally, normal external ear exam. Absent: mucous membranes dry Neck exam: Present: normal inspection, full ROM, lymphadenopathy (Nontender posterior cervical). Absent: tenderness, meningismus Respiratory exam: Present: normal lung sounds bilaterally. Absent: respiratory distress, wheezes, rales, rhonchi, stridor Cardiovascular Exam: Present: regular rate, normal rhythm, normal heart sounds. Absent: systolic murmur, diastolic murmur, rubs, gallop, clicks GI/Abdominal exam: Present: soft, normal bowel sounds. Absent: distended, tenderness, guarding, rebound, rigid Extremities exam: Present: normal inspection, full ROM, normal capillary refill. Absent: tenderness, pedal edema, joint swelling, calf tenderness Back exam: Present: normal inspection Neurological exam: Present: alert, oriented X3, CN II-XII intact Psychiatric exam: Present: normal affect, normal mood Skin exam: Present: warm, dry, intact, normal color. Absent: rash Course Vital Signs 08/05/21 02:09 Temperature 98.4 F Pulse Rate 98 Respiratory 18 Rate Blood Pressure 124/77 O2 Sat by Pulse 98 Oximetry Medical Decision Making - Medical Decision Making Patient presents to symptomology consistent with influenza. Patient tested positive. Patient is within the 48-hour window. We'll cover her with Tamiflu. Continue treatment with antipyretics. Discussed conservative therapy. Patient did ask for something to help him sleep. One dose of Benadryl was given here. Patient was told to return to the ER for any signs or symptoms worsen. Told to return immediately if any other problems arise. All questions answered. Treatment plan discussed. Patient in agreement Every effort has been made to ensure accuracy of this dictation. However, due to the limitations of electronic medical records and dictation devices, errors in charting still occur. Supervising physician Dr. Gutierrez - Lab Data Lab Results 08/05/21 08/05/21 Range/Units 02:14 02:14 Coronavirus (PCR) Not Detected (Not Detectd) Influenza Type A RNA Detected H (Not Detectd) Influenza Type B (PCR) Not Detected (Not Detectd) Disposition Clinical Impression: Influenza A Disposition: HOME SELF-CARE Condition: Stable Instructions (If sedation given, give patient instructions): Influenza (ED) Additional Instructions: Acetaminophen and ibuprofen for body aches. Drink plenty of fluid. Take the Tamiflu as directed. Follow-up with your regular physician as directed. Return to the ER immediately if any symptoms worsen, new symptoms arise, or any other problems develop. Is patient prescribed a controlled substance at d/c from ED?: No Referrals: Ga Prasad MD [Primary Care Provider] - 08/12/21 Time of Disposition: 03:43
[2021-08-05 04:02] VITALS: BP 144/85; PULSE 94
== END 2021-08-05 04:10 | disposition home or self-care (01) ==
LOC: EC 02:06
DX: J10.1 Influenza due to other identified influenza virus with other respiratory manifestations (principal); Z20.822 Contact with and (suspected) exposure to COVID-19; F12.90 Cannabis use, unspecified, uncomplicated; Z87.891 Personal history of nicotine dependence
CPT/HCPCS: 87502; 87635; 99283